=== PATIENT | male | born 1990 | race African-American/Black ===

== ENCOUNTER 2024-01-27 11:29 | Emergency (ER) | payer OTHER, SELFPAY ==
--- NOTE | ~2024-01-27 | US_ITS ---
Duplex Sonography of the right extremity: Indication: Calf pain Findings: Sagittal and transverse B-mode images as well as color-flow imaging were performed on the r ight femoral and popliteal veins. B-mode examination was done without and with compression in the tr ansverse plane. There is good visualization of the common femoral, proximal profunda femoral, superf icial femoral, greater saphenous, and popliteal veins. Normal flow was seen on color-flow imaging. N ormal compressibility was demonstrated. Visualized calf veins are also patent. Impression: No evidence of deep vein thrombosis involving the right lower extremity. Reviewed, dictated and finalized at location M. ING PAINTER Impression: No evidence of deep vein thrombosis involving the right lower extremity.
[2024-01-27 11:45] VITALS: BP 146/85; PULSE 71; RESP 20; TEMP 36.1; O2SAT 97
--- NOTE | 2024-01-27 12:45 | ED_ITS ---
HPI - Extremity Problem General Chief complaint: Extremity Problem,Nontraumatic Stated complaint: R leg pain Time Seen by Provider: 01/27/24 12:10 Source: patient Mode of arrival: ambulatory Limitations: no limitations History of Present Illness HPI Narrative: Patient with right calf pain for 2 weeks and some swelling noticed. Worse he walks. No history of DVT. No injury. Related Data Allergies Allergy/AdvReac Type Severity Reaction Status Date / Time No Known Allergies Allergy Verified 01/27/24 11:43 Review of Systems Review of Systems: All systems reviewed & are unremarkable except as noted in HPI and below Exam Narrative: Constitutional: Generally well appearing, no acute distress Head: Atraumatic, no deformities. Eyes: Pupils equal, round, and reactive to light. Neck: Supple, no tracheal deviation, no JVD. ENMT: Mucous membranes moist Cardiovascular: S1, S2 auscultated. No murmurs, rubs, or gallops. No S3/S4. Normal Distal pulses. No peripheral edema Respiratory: Lung sounds equal. No wheezes, rales, or rhonchi. Gastrointestinal: Abdomen was soft and non-tender. Non-distended. No rebound or guarding. Genitourinary: Deferred Musculoskeletal: Normal muscle tone and bulk. Mild tenderness to palpation in the right calf. No obvious swelling Skin: No rashes. Neurological: Strength 5/5 in extremities. Cranial nerves I-XII grossly intact. Distal sensation intact. Mental Status: Awake, alert and oriented x3. Follows commands Course Vital Signs Vital signs: Vital Signs Temperature 36.1 C L 01/27/24 11:45 Pulse Rate 71 01/27/24 11:45 Respiratory Rate 20 01/27/24 11:45 Blood Pressure 146/85 H 01/27/24 11:45 Pulse Oximetry 97 01/27/24 11:45 Oxygen Delivery Room Air 01/27/24 11:45 Temperature 36.1 C L 01/27/24 11:45 Pulse Rate 71 01/27/24 11:45 Respiratory Rate 20 01/27/24 11:45 Blood Pressure 146/85 H 01/27/24 11:45 Pulse Oximetry 97 01/27/24 11:45 Oxygen Delivery Room Air 01/27/24 11:45 MDM - Extremity (Nontraumatic) MDM Narrative Medical decision making narrative: 33-year-old here for right leg pain ongoing for 2 weeks. Located in his right calf. Worse with walking. Exam shows no significant swelling but he is mildly tender in the area. Suspect either muscular inflammation versus DVT. Obtaining ultrasound to rule out DVT. US shows no DVT. Suspect muscular etiology such as strain. Pt feeling improved and would like to go home at this point. Return precautions were given to the patient include any new or worsening symptoms or development of and not limited to any chest pain, shortness of breath, lightheadedness, abdominal pain, fevers, chills. Patient understands and agrees. They are to follow-up with her PCP. All questions were answered. I reviewed the patient's vital signs, history, allergies, and labs and imaging workup. Discharge Plan Discharge Clinical Impression: Strain of calf muscle Qualifiers: Encounter type: initial encounter Laterality: right Qualified Code(s): S86.811A - Strain of other muscle(s) and tendon(s) at lower leg level, right leg, initial encounter Patient Disposition: Home, Self-Care Condition: Stable Instructions: Antibiotic Form, Leg Sprain (ED) Prescriptions: New naproxen 500 mg tablet 500 mg PO BID PRN (Reason: pain) Qty: 20 0RF Follow-up/Referrals: PHYSICIAN,ORACLE BUSINESS ANALYST [Non-Staff] - Time of Disposition: 13:36
[2024-01-27 13:45] VITALS: BP 138/80; PULSE 78; RESP 16; TEMP 36.6; O2SAT 100
== END 2024-01-27 13:47 | disposition home or self-care (01) ==
PROVIDERS: Emergency Provider Emergency Medicine
DX: S86.811A Strain of other muscle(s) and tendon(s) at lower leg level, right leg, initial encounter (principal)
CPT/HCPCS: 93971; 99284

== ENCOUNTER 2024-02-17 15:32 | Emergency (ER) | payer OTHER, SELFPAY ==
[2024-02-17 15:42] VITALS: BP 123/70; PULSE 77; RESP 16; TEMP 36.4; O2SAT 99
--- NOTE | 2024-02-17 15:44 | ED_ITS ---
HPI - Wound/Laceration General Chief Complaint: Wound/Laceration Stated Complaint: Open Wound Time Seen by Provider: 02/17/24 15:45 Source: patient Mode of arrival: ambulatory Limitations: no limitations Related Data Allergies Allergy/AdvReac Type Severity Reaction Status Date / Time No Known Allergies Allergy Verified 01/27/24 11:43 Course Vital Signs Vital signs: Vital Signs Temperature 36.4 C L 02/17/24 15:42 Pulse Rate 77 02/17/24 15:42 Respiratory Rate 16 02/17/24 15:42 Blood Pressure 123/70 02/17/24 15:42 Pulse Oximetry 99 02/17/24 15:42 Temperature 36.4 C L 02/17/24 15:42 Pulse Rate 77 02/17/24 15:42 Respiratory Rate 16 02/17/24 15:42 Blood Pressure 123/70 02/17/24 15:42 Pulse Oximetry 99 02/17/24 15:42 Discharge Plan Discharge Prescriptions: No Action naproxen 500 mg tablet 500 mg PO BID PRN (Reason: pain) Qty: 20 0RF Follow-up/Referrals: PHYSICIAN,MEDIA PRODUCTION SUPPORT MANAGER [Primary Care Provider] -
--- NOTE | 2024-02-17 15:46 | ED.SKABFB ---
HPI - Skin/Abscess/Foreign Bdy General Chief complaint: Wound/Laceration Stated complaint: Open Wound Time Seen by Provider: 02/17/24 15:45 Source: patient Mode of arrival: ambulatory Limitations: no limitations History of Present Illness HPI narrative: 33 yo M started using new deodorant 1 wk ago and has been having pain irritation, swelling to armpits for 4 days. Reports drainage. Pain when moving arms. Unsure if he has infection or allergic reaction to deodorant. afebrile. All systems reviewed and negative except as noted above. Related Data Allergies Allergy/AdvReac Type Severity Reaction Status Date / Time No Known Allergies Allergy Verified 02/17/24 15:50 Review of Systems Review of Systems: CONSTITUTIONAL: Denies fever, chills, or sweats. EYES: Denies visual changes, redness, or discharge. ENT: Denies rhinorrhea, congestion, sore throat, or otalgia. CARDIOVASCULAR: Denies chest pain, palpitations, or edema. RESPIRATORY: Denies cough or dyspnea. GASTROINTESTINAL: Denies abdominal pain, nausea, vomiting, or diarrhea. GENITOURINARY: Denies dysuria or hematuria. SKIN: Denies rash or itching. Reports pain, swelling, redness, open draining to bilteral armpits MUSCULOSKELETAL: Denies back pain, joint pain, or myalgia. NEUROLOGIC: Denies headache, numbness, or weakness. PSYCHIATRIC: Denies anxiety or depression. All other systems reviewed are negative, except as documented in HPI. PMFSH Comments At time of signature, agree with nursing past medical, surgical, social and family history. There is no relevant family history pertinent to the presenting complaint. Exam Narrative: GENERAL: This is a well-nourished, well-developed patient, in no apparent distress. HEAD: normocephalic, atraumatic. EYES: PERRL. Sclera clear/white. Vision is grossly intact. EARS: External ears normal NOSE: External nose normal NECK: Neck supple, non-tender without lymphadenopathy, masses or thyromegaly. CARDIOVASCULAR: Regular rate and rhythm without murmurs, gallops, or rubs. RESPIRATORY: Clear to auscultation. Breath sounds equal bilaterally. No wheezes, rales, or rhonchi. SKIN: erythema, hypimentation to bilateral axilla with swelling, tenderness. some open skin with purulent drainage. NEURO: awake, alert, and oriented to person, place and time. There were no obvious focal neurologic abnormalities. EXTREMITIES: No joint tenderness, effusion, or edema noted. Course Course Level of Care: Express Care Visit Vital Signs Vital signs: Vital Signs Temperature 36.4 C L 02/17/24 15:42 Pulse Rate 77 02/17/24 15:42 Respiratory Rate 16 02/17/24 15:42 Blood Pressure 123/70 02/17/24 15:42 Pulse Oximetry 99 02/17/24 15:42 Temperature 36.4 C L 02/17/24 15:42 Pulse Rate 77 02/17/24 15:42 Respiratory Rate 16 02/17/24 15:42 Blood Pressure 123/70 02/17/24 15:42 Pulse Oximetry 99 02/17/24 15:42 reviewed MDM - Skin/Abscess/Foreign Bdy MDM Narrative Medical decision making narrative: possible allergic reaction to new deodorant. recommend pt stop. will treat with abx and antifungal due to pt's symptoms. avoid deodorant until symptoms resolved. Patient is aware of diagnosis, understands and agrees to treatment plan. Anticipatory guidance given. Patient agrees to follow-up as directed and is aware of reasons to seek care at the emergency department. Portions of this record may have been created with voice recognition software Discharge Plan Discharge Clinical Impression: Cellulitis of axillary region, Fungal infection Patient Disposition: Home, Self-Care Condition: Stable Instructions: Antibiotic Form Additional Instructions: Take medications as prescribed. Stop using new deodorant and switch back to old deodorant after symptoms have resolved. Wash with mild soap and water. Pat dry with towel. Take ibuprofen or Tylenol every 6-8 hours as needed for pain. See your doctor if symptoms not improving. Prescriptions: New cephalexin 500 mg capsule 500 mg PO Q6H 7 Days Qty: 28 0RF itraconazole 100 mg capsule 200 mg PO DAILY 7 Days Qty: 14 0RF Rx Instructions: must administer with a meal/food No Action naproxen 500 mg tablet 500 mg PO BID PRN (Reason: pain) Qty: 20 0RF Follow-up/Referrals: PHYSICIAN,NEWS CAMERA OPERATOR [Primary Care Provider] - Time of Disposition: 15:53
== END 2024-02-17 16:14 | disposition home or self-care (01) ==
PROVIDERS: Emergency Provider Nurse Practitioner Family
DX: L03.112 Cellulitis of left axilla (principal); L03.111 Cellulitis of right axilla; B36.9 Superficial mycosis, unspecified; I10 Essential (primary) hypertension
CPT/HCPCS: 99213; G0463

== ENCOUNTER 2024-05-14 22:58 | Emergency (ER) | payer OTHER, SELFPAY ==
--- NOTE | ~2024-05-14 | XR_ITS ---
EXAMINATION: XR chest 2V Exam Date/Time: 05/14/2024 23:50 GMAT INSTRUCTOR HISTORY: cp MID TO LEFT SIDE Comparison: None. RESULT: Lines, tubes, and devices: None. Lungs and pleura: Clear. Cardiomediastinal silhouette: Normal. Other: No acute osseous or upper abdominal finding. IMPRESSION: No acute cardiopulmonary process. Reviewed, dictated and finalized at location K. INSTRUCTOR
--- OUTSIDE RECORDS SUMMARY | 2024-05-14 23:00 | XMS_ITS | Data Portability ---
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 Plan of Treatment Reminders Order Date Submit Date Provider Last Modified By Organization Details Last Modified Time Details Appointments None recorded. Lab TSH, ultra-sensi tive, serum 2023 024 [facility], [address] [place] [address], [address], [place], [address], 4 11:15:51 HbA1c (hemoglobin A1c), blood 2023 024 [facility], [address] [place] [address], [address], [place], [address], 4 11:15:51 CMP, serum or plasma 2023 024 [facility], [address] [place] [address], [address], [place], [address], 4 11:15:50 lipid panel, serum 2023 024 [facility], [address] [place] [address], [address], [place], [address], 4 11:15:49 albumin/cre atinine, mass ratio, urine 2023 024 [facility], [address], [address], [place], [address], 4 11:15:49 CBC w/ auto diff 2023 024 [facility], [address], [address], [place], [address], 4 11:15:[address] referral - snoring, witnessed sleep apnea, please eval and treat 2023 024 [facility], [address] , [place] [address], [place], [address], 4 12:30:20 Procedures None recorded. Surgeries None recorded. Imaging XR, finger(s), 2 or more view - pain in right ring finger 2023 024 [facility] (Registration ), [address], [place], [address], 4 11:05:06 XR, hand, 3 or more view - pain in right ring finger 2023 024 [facility] (Registration ), [place], [address], 4 11:04:58 Medication Orders amlodipine 10 mg tablet 2023 024 [id number], [address] [place], [address], 4 14:47:27 amlodipine 10 mg tablet 2023 024 [id number], [address] [place], [address], 4 09:59:26 amlodipine 5 mg tablet 2023 024 [id number], [address] [place], [address], 09:30:58 Tubersol 5 tub. unit/0.1 mL intradermal injection solution 2014 015 [facility] Not available 09:03:24 Patient TargetsNo targets recorded. Patient Instructions Encounter Date Encounter Id Patient Instructions Last Modified By Organization Details Last Modified Time 06/07/2023 [id number] A healthy lifestyle: care instructions [email or web address] Not available 06/07/2023 15:59:16 06/28/2023 [id number] A healthy lifestyle: care instructions [email or web address] Not available 06/28/2023 09:50:45 I saw the patien t with the [employer] student A Cindy RN. I agree with the students assessment and plan as documented. 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 Referral for S noring snoring, witnessed sleep apnea, please eval and treat Referring Physician: Linda Nguyen, Artist'S Model, Encounter Date: 06/07/2023 Results Created Date Observation Date Name Description Value Unit Range Abnormal Flag Note LastModifiedBy Organization Detail LastModifiedTime 05/17/19 15 05/17/2014 visua l acuit y* R Eye Uncorrected 20/50 Not Available In-O ffice Order Internal Use Only DO Not Attach Compendium DO Not Attach Compendium, Do Not Delete/merge, [id number] 05/17/2014 13:05:29 05/17/19 15 05/17/2014 visua l acuit y* L Eye Uncorrected 20/40 Not Available In-O ffice Order Internal Use Only DO Not Attach Compendium DO Not Attach Compendium, Do Not Delete/merge, [id number] 05/17/2014 13:05:29 06/07/19 24 06/08/2023 ALBUM IN/CR EATIN INE RATIO ,URIN E creatinine, urine 157.5 mg/dL notest ab. Not Available [facility] ([facility]) [address] [place], [address], 06/08/2023 11:15:49 06/07/19 24 06/08/2023 ALBUM IN/CR EATIN INE RATIO ,URIN E albumin, urine 9.2 ug/mL notest ab. Not Available [facility] ([facility]) [address] [facility], [place], [address], 06/08/2023 11:15:49 06/07/19 24 06/08/2023 ALBUM IN/CR EATIN INE RATIO ,URIN E alb/creat ratio 6 mg/g_ creat 0-29 Diane l: 0 - 29 Moder ately incre ased: 30 - 300 Sever margoth incre ased: >300 Not Available [facility] ([facility]) [address] [place], [address], 06/08/2023 11:15:49 06/07/19 24 06/08/2023 LIPID PANEL cholesterol, total 178 mg/dL 100-19 9 Not Available [facility] ([facility]) [address] [place], [address], 06/08/2023 11:15:49 06/07/19 24 06/08/2023 LIPID PANEL triglyceride s 95 mg/dL 0-149 Not Available [facility] ([facility]) [address] [place], [address], 06/08/2023 11:15:49 06/07/19 24 06/08/2023 LIPID PANEL HDL cholesterol 37 mg/dL >39 below low normal Not Available [facility] ([facility]) [address] [place], [address], 06/08/2023 11:15:49 06/07/19 24 06/08/2023 LIPID PANEL VLDL cholesterol latoya 18 mg/dL 5-40 Not Available [facility] ([facility]) [address] [place], [address], 06/08/2023 11:15:49 06/07/19 24 06/08/2023 LIPID PANEL LDL chol calc ([facility]) 123 mg/dL 0-99 above high normal Not Available [facility] ([facility]) [address] [place], [address], 06/08/2023 11:15:49 06/07/19 24 06/08/2023 COMP. METAB OLIC PANEL (14) glucose 80 mg/dL 70-99 Not Available [facility] ([facility]) [address] [place], [address], 06/08/2023 11:15:50 06/07/19 24 06/08/2023 COMP. METAB OLIC PANEL (14) BUN 15 mg/dL 6-20 Not Available [facility] ([facility]) [address] [place], [address], 06/08/2023 11:15:50 06/07/19 24 06/08/2023 COMP. METAB OLIC PANEL (14) creatinine 1.28 mg/dL 0.76-1 .27 above high normal Not Available [facility] ([facility]) [address] [place], [address], 06/08/2023 11:15:50 06/07/19 24 06/08/2023 COMP. METAB OLIC PANEL (14) eGFR 77 mL/mi n/1.7 3 >59 Not Available [facility] ([facility]) [address] [place], [address], 06/08/2023 11:15:50 06/07/19 24 06/08/2023 COMP. METAB OLIC PANEL (14) BUN/creatini ne ratio 12 - Not Available [facility]) [address] [place], [address], 06/08/2023 11:15:50 06/07/19 24 06/08/2023 COMP. METAB OLIC PANEL (14) sodium 141 mmol/ L 134-14 4 Not Available [facility] ([facility]) [address] [place], [address], 06/08/2023 11:15:50 06/07/19 24 06/08/2023 COMP. METAB OLIC PANEL (14) potassium 4.7 mmol/ L 3.5-5. 2 Not Available [facility] ([facility]) [address] [place], [address], 06/08/2023 11:15:50 06/07/19 24 06/08/2023 COMP. METAB OLIC PANEL (14) chloride 101 mmol/ L 96-106 Not Available [facility] ([facility]) [address] [place], [address], 06/08/2023 11:15:50 06/07/19 24 06/08/2023 COMP. METAB OLIC PANEL (14) carbon dioxide, total 26 mmol/ L 20-29 Not Available [facility] ([facility]) [address] [place], [address], 06/08/2023 11:15:50 06/07/19 24 06/08/2023 COMP. METAB OLIC PANEL (14) calcium 9.7 mg/dL 8.7-10 .2 Not Available [facility] ([facility]) [address] [facility] [place], [address], 06/08/2023 11:15:50 06/07/19 24 06/08/2023 COMP. METAB OLIC PANEL (14) protein, total 7.3 g/dL 6.0-8. 5 Not Available [facility] ([facility]) [address] [facility] [place], [address], 06/08/2023 11:15:50 06/07/19 24 06/08/2023 COMP. METAB OLIC PANEL (14) albumin 4.5 g/dL 4.1-5. 1 Not Available [facility] ([facility]) [address] [facility], [place], [address], 06/08/2023 11:15:50 06/07/19 24 06/08/2023 COMP. METAB OLIC PANEL (14) globulin, total 2.8 g/dL 1.5-4. 5 Not Available [facility] ([facility]) [address] [facility], [place], [address], 06/08/2023 11:15:50 06/07/19 24 06/08/2023 COMP. METAB OLIC PANEL (14) A/G ratio 1.6 1.2-2. 2 Not Available [facility] ([facility]) [address] [facility], [place], [address], 06/08/2023 11:15:50 06/07/19 24 06/08/2023 COMP. METAB OLIC PANEL (14) bilirubin, total 0.5 mg/dL 0.0-1. 2 Not Available [facility] ([facility]) [address] [facility], [place], [address], 06/08/2023 11:15:50 06/07/19 24 06/08/2023 COMP. METAB OLIC PANEL (14) alkaline phosphatase 63 IU/L 44-121 Not Available [facility]) [address] [facility], [place], [address], 06/08/2023 11:15:50 06/07/19 24 06/08/2023 COMP. METAB OLIC PANEL (14) AST (SGOT) 22 IU/L 0-40 Not Available [facility] ([facility]) [address] [facility], [place], [address], 06/08/2023 11:15:50 06/07/19 24 06/08/2023 COMP. METAB OLIC PANEL (14) ALT (SGPT) 29 IU/L 0-44 Not Available [facility] ([facility]) [address] [facility], [place], [address], 06/08/2023 11:15:50 06/07/19 24 06/08/2023 TSH RFX ON ABNOR MAL TO FREE T4 TSH 1.510 uIU/m L 0.450- 4.500 Not Available [facility] ([facility]) [address] [place], [address], 06/08/2023 11:15:51 06/07/19 24 06/08/2023 HEMOG LOBIN A1C hemoglobin A1C 5.3 % 4.8-5. 6 Predi abete s: 5.7 - 6.4 Diabe miki: >6.4 Glyce christian contr ol for adult s with diabe miki: <7.0 Not Available [facility] ([facility]) [address] [facility], [place], [address], 06/08/2023 11:15:51 06/07/19 24 06/08/2023 CBC WITH DIFFE RENTI AL/PL ATELE T WBC 6.4 x10e3 /uL 3.4-10 .8 Not Available [facility] ([facility]) [address] [place], [address], 06/08/2023 11:15:52 06/07/19 24 06/08/2023 CBC WITH DIFFE RENTI AL/PL ATELE T RBC 6.07 x10e6 /uL 4.14-5 .80 above high normal Not Available [facility] ([facility]) [address] [place], [address], 06/08/2023 11:15:52 06/07/19 24 06/08/2023 CBC WITH DIFFE RENTI AL/PL ATELE T hemoglobin 16.1 g/dL 13.0-1 7.7 Not Available [facility] ([facility]) [address] [place], [address], 06/08/2023 11:15:52 06/07/19 24 06/08/2023 CBC WITH DIFFE RENTI AL/PL ATELE T hematocrit 49.6 % 37.5-5 1.0 Not Available [facility] ([facility]) [address] [facility], [place], [address], 06/08/2023 11:15:52 06/07/19 24 06/08/2023 CBC WITH DIFFE RENTI AL/PL ATELE T MCV 82 fL 79-97 Not Available [facility] ([facility]) [address] [facility], [place], [address], 06/08/2023 11:15:52 06/07/19 24 06/08/2023 CBC WITH DIFFE RENTI AL/PL ATELE T MCH 26.5 pg 26.6-3 3.0 below low normal Not Available [facility] ([facility]) [address] [facility], [place], [address], 06/08/2023 11:15:52 06/07/19 24 06/08/2023 CBC WITH DIFFE RENTI AL/PL ATELE T MCHC 32.5 g/dL 31.5-3 5.7 Not Available [facility] ([facility]) [address] [place], [address], 06/08/2023 11:15:52 06/07/19 24 06/08/2023 CBC WITH DIFFE RENTI AL/PL ATELE T RDW 13.1 % 11.6-1 5.4 Not Available [facility] ([facility]) [address] [facility], [place], [address], 06/08/2023 11:15:52 06/07/19 24 06/08/2023 CBC WITH DIFFE RENTI AL/PL ATELE T platelets 332 x10e3 /uL 150-45 0 Not Available [facility] ([facility]) [address] [place], [address], 06/08/2023 11:15:52 06/07/19 24 06/08/2023 CBC WITH DIFFE RENTI AL/PL ATELE T neutrophils 46 % notest ab. Not Available [facility] ([facility]) [address] [facility], [place], [address], 06/08/2023 11:15:52 06/07/19 24 06/08/2023 CBC WITH DIFFE RENTI AL/PL ATELE T lymphs 40 % notest ab. Not Available [facility] ([facility]) [address] [facility], [place], [address], 06/08/2023 11:15:52 06/07/19 24 06/08/2023 CBC WITH DIFFE RENTI AL/PL ATELE T monocytes 10 % notest ab. Not Available [facility] ([facility]) [address] [facility], [place], [address], 06/08/2023 11:15:52 06/07/19 24 06/08/2023 CBC WITH DIFFE RENTI AL/PL ATELE T eos 3 % notest ab. Not Available [facility] ([facility]) [address] [facility], [place], [address], 06/08/2023 11:15:52 06/07/19 24 06/08/2023 CBC WITH DIFFE RENTI AL/PL ATELE T basos 1 % notest ab. Not Available [facility] ([facility]) [address] [facility], [place], [address], 06/08/2023 11:15:52 06/07/19 24 06/08/2023 CBC WITH DIFFE RENTI AL/PL ATELE T neutrophils (absolute) 3.0 x10e3 /uL 1.4-7. 0 Not Available [facility] ([facility]) [address] [place], [address], 06/08/2023 11:15:52 06/07/19 24 06/08/2023 CBC WITH DIFFE RENTI AL/PL ATELE T lymphs (absolute) 2.6 x10e3 /uL 0.7-3. 1 Not Available [facility] ([facility]) [address] [facility], [place], [address], 06/08/2023 11:15:52 06/07/19 24 06/08/2023 CBC WITH DIFFE RENTI AL/PL ATELE T monocytes(ab solute) 0.6 x10e3 /uL 0.1-0. 9 Not Available [facility] ([facility]) [address] [facility], [place], [address], 06/08/2023 11:15:52 06/07/19 24 06/08/2023 CBC WITH DIFFE RENTI AL/PL ATELE T eos (absolute) 0.2 x10e3 /uL 0.0-0. 4 Not Available [facility] ([facility]) [address] [facility], [place], [address], 06/08/2023 11:15:52 06/07/19 24 06/08/2023 CBC WITH DIFFE RENTI AL/PL ATELE T baso (absolute) 0.1 x10e3 /uL 0.0-0. 2 Not Available [facility] ([facility]) [address] [facility], [place], [address], 06/08/2023 11:15:52 06/07/19 24 06/08/2023 CBC WITH DIFFE RENTI AL/PL ATELE T immature granulocytes 0 % notest ab. Not Available [facility] ([facility]) [address] [facility], [place], [address], 06/08/2023 11:15:52 06/07/19 24 06/08/2023 CBC WITH DIFFE RENTI AL/PL ATELE T immature grans (abs) 0.0 x10e3 /uL 0.0-0. 1 Not Available [facility] ([facility]) [address] [facility], [place], [address], 06/08/2023 11:15:52 06/28/19 24 06/29/2023 BASIC METAB OLIC PANEL (8) glucose 93 mg/dL 70-99 Not Available [facility] ([facility]) [address] [facility] [place], [address], 06/29/2023 02:08:54 06/28/19 24 06/29/2023 BASIC METAB OLIC PANEL (8) BUN 11 mg/dL 6-20 Not Available [facility] ([facility]) [address] [facility] [place], [address], 06/29/2023 02:08:54 06/28/19 24 06/29/2023 BASIC METAB OLIC PANEL (8) creatinine 1.20 mg/dL 0.76-1 .27 Not Available [facility] ([facility]) [address] [facility] [place], [address], 06/29/2023 02:08:54 06/28/19 24 06/29/2023 BASIC METAB OLIC PANEL (8) eGFR 83 mL/mi n/1.7 3 >59 Not Available [facility] ([facility]) [address] [facility], [place], [address], 06/29/2023 02:08:54 06/28/19 24 06/29/2023 BASIC METAB OLIC PANEL (8) BUN/creatini ne ratio 9 9-20 Not Available [facility]) [address] [place], [address], 06/29/2023 02:08:54 06/28/19 24 06/29/2023 BASIC METAB OLIC PANEL (8) sodium 141 mmol/ L 134-14 4 Not Available [facility] ([facility]) [address] [place], [address], 06/29/2023 02:08:54 06/28/19 24 06/29/2023 BASIC METAB OLIC PANEL (8) potassium 4.5 mmol/ L 3.5-5. 2 Not Available [facility] ([facility]) [address] [place], [address], 06/29/2023 02:08:54 06/28/19 24 06/29/2023 BASIC METAB OLIC PANEL (8) chloride 105 mmol/ L 96-106 Not Available [facility] ([facility]) [address] [facility], [place], [address], 06/29/2023 02:08:54 06/28/19 24 06/29/2023 BASIC METAB OLIC PANEL (8) carbon dioxide, total 22 mmol/ L 20-29 Not Available [facility] ([facility]) [address] [facility], [place], [address], 06/29/2023 02:08:54 06/28/19 24 06/29/2023 BASIC METAB OLIC PANEL (8) calcium 9.6 mg/dL 8.7-10 .2 Not Available [facility] ([facility]) [address] [facility], [place], [address], 06/29/2023 02:08:54 12/29/19 17 12/28/2016 CT, head, w/o contr ast No observ ation record ed. [email or web address] Not Available 2016 11:20:19 07/01/19 24 xr hand RT 3V [facility] [place] [address] EXAM: XR FOURTH FINGER RT 3V, XR HAND RT 3V DATE: 06/28/19 24 No compar rangel INDICA TION: Fourth digit pain for about 2 months . Sympto ms starte d after letty gillespie TECHNI QUE: 3 views of the right hand and 4 views of the right fourth finger . FINDIN GS: No fractu re or malali gnment . Normal bone densit y. IMPRES CHON: Normal exams. Referr ed By: Samantha onkandi ly Signed By: Brandon Rawls MD on 2:29 PM Interp reted By: Brandon Rawls MD, 2:23 PM sp[facility]arrosalie [facility] [address] [facility], [place], [address], 07/11/2023 11:05:35 07/01/19 24 xr fourt h finge r RT 3V [facility] [place] [address] EXAM: XR FOURTH FINGER RT 3V, XR HAND RT 3V DATE: 06/28/19 24 No compar rangel INDICA TION: Fourth digit pain for about 2 months . Sympto ms starte d after letty gillespie TECHNI QUE: 3 views of the right hand and 4 views of the right fourth finger . FINDIN GS: No fractu re or malali gnment . Normal bone densit y. IMPRES CHON: Normal exams. Referr ed By: Samantha langford Signed By: Brandon Rawls MD on 2:29 PM Interp reted By: Brandon Rawls MD, 2:23 PM herman [facility] [address] [facility], [place], [address], 07/11/2023 11:05:35 Result Notes None recorded. Problems Name Problem SNOMED Code Status Onset Date Resolution Date Notes Provider Name and Address Organization Details Recorded Time Hypertens oneyda disorder 12846520 Active 2023 ---Synced with [facility] ([facility]) Not Available [facility] 4 09:39:25 Asthma 135097023 Active 2023 ---Synced with [facility] ([facility]) Not Available [facility] 4 09:39:25 Essential hypertens ion 47086908 Active 2023 ---Synced with [facility] ([facility]) Not Available [facility] 4 09:39:26 Problem Notes None recorded. Procedures Surgical History Date Name Laterality Status Provider Name and Address Organization Details Recorded Time 5 Appendectomy completed DIYA Tidwell Attn: Accounting,[address] [place], [address], [place] [facility] 06/07/2023 15:30:15 Imaging Results Imaging Date Name Status LastModified by Organiz ation Details LastModified Time 12/28/2016 CT, head, w/o contrast completed [email or web address] Information not available 01/06/2017 11:20:19 07/01/2023 xr hand RT 3V completed [address], [address], 07/11/2023 11:05:35 07/01/2023 xr fourth finger RT 3V completed [address], [address], 07/11/2023 11:05:35 Procedure Notes None recorded. Medical Equipment None Reported. Allergies No known drug allergies Medications Name Sig Start Date Stop Date Status Note LastModified by Organization Details LastModified Time amoxicill in 500 mg caps 06/06 completed Not Available Not Available Not Available acetamino phen/code ine #3 300-30 mgtabs 06/06 completed Not Available Not Available Not Available metronida zole 1 % gel 06/06 completed Not Available Not Available Not Available hydrochlo rothiazid e 25 mg tabs 06/06 completed Not Available Not Available Not Available ibuprofen 600 mg tabs 06/06 completed Not Available Not Available Not Available ibuprofen 800 mg tablet TAKE 1 TABLET BY MOUTH EVERY 8 HOURS NEEDED FOR PAIN active Not Available Not Available No t Available Tubersol 5 tub. unit/0.1 mL intraderm al injection solution 09/25 completed 06/16/19 15_Pt. returned to have PPD read. Results: Negative , 0mm. Vani Nova MA Not Available Not Available Not Available amlodipin e 5 mg tablet Take 1 tablet every day by oral route. 06/27 completed Not Available Not Available Not Available tramadol 50 mg tablet TAKE 1 TABLET BY MOUTH EVERY 8 HOURS NEEDED FOR PAIN 03/19 /2024 completed Not Available Not Available Not Available amlodipin e 10 mg tablet TAKE 1 TABLET BY MOUTH EVERY DAY FOR HIGH BLOOD PRESSURE . active Appt needed* Not Available Not Available Not Available benzonata te 100 mg capsule TAKE 1 CAPSULE BY MOUTH THREE TIMES A DAY NEEDED FOR COUGH 06/06 completed Not Available Not Available Not Available cephalexi n 500 mg capsule TAKE 1 CAPSULE BY MOUTH EVERY 6 HOURS FOR 7 DAYS active Not Available Not Available No t Available methylpre dnisolone 4 mg tablets in a dose pack TAKE BY MOUTH DIRECTED ON INSIDE OF PACKAGE 06/06 completed Not Available Not Available Not Available ondansetr on 4 mg disintegr ating tablet TAKE 1 TABLET BY MOUTH EVERY 8 HOURS NEEDED 06/06 completed Not Available Not Available Not Available itraconaz ole 100 mg capsule TAKE 2 CAPSULES BY MOUTH ONCE DAILY FOR 7 DAYS MUST ADMINIST ER WITH A MEAL/MACKENZIE D active Not Available Not Available No t Available naproxen 500 mg tablet TAKE 1 TABLET BY MOUTH TWICE A DAY NEEDED FOR PAIN active Not Available Not Available No t Available amoxicill in 875 mg-potass ium clavulana te 125 mg tablet TAKE 1 TABLET BY MOUTH TWICE A DAY UNTIL FINISHED , NOT CONTRACT ED 09/25 completed Not Available Not Available Not Available sildenafi l (pulmonar y hypertens ion) 20 mg tablet TAKE ONE TABLET BY MOUTH DAILY NEEDED AN HOUR BEFORE SEX. DO NOT TAKE MORE THAN ONE TIME IN 48 HOURS. THIS IS NOT A DAILY MEDICINE . active Not Available Not Available No t Available Vitals Date Recorded Body temperature Body height Body mass index (BMI) Body weight Heart rate Oxygen saturation Oxygen saturation in Arterial blood by Pulse oximetry Systolic blood pressure Diastolic blood pressure Provider Name and Address Organization Details Last Updated DateTime 4 97.7 [degF] 172.09 cm 36.9 kg/m2 461105. 76 g 79 /min 98 % 98 % 139 mm[Hg] 101 mm[Hg] Maxine Donovan MA [place] [facility] 4 15:23:08 Date Recorded Body height Body mass index (BMI) Body weight Body temperature Heart rate Systolic blood pressure Diastolic blood pressure Provider Name and Address Organization Details Last Updated DateTime 4 172.09 cm 42 kg/m2 255832. 31 g 98.1 [degF] 78 /min 137 mm[Hg] 90 mm[Hg] Danette Purcell [place] [facility] 09:18:08 Date Recorded Heart rate Systolic blood pressure Diastolic blood pressure Provider Name and Address Organization Details Last Updated DateTime 06/28/2023 64 /min 118 mm[Hg] 91 mm[Hg] Not Available [facility] 09:53:11 Date Recorded Systolic blood pressure Diastolic blood pressure Provider Name and Address Organization Details Last Updated DateTime 06/28/2023 128 mm[Hg] 92 mm[Hg] DIYA Tidwell Attn: Accounting,[address] [facility], [place], [address], [place] - [facility] 06/28/2023 09:29:05 Date Recorded Heart rate Systolic blood pressure Diastolic blood pressure Provider Name and Address Organization Details Last Updated DateTime 06/29/2023 77 /min 113 mm[Hg] 79 mm[Hg] Not Available [facility] 12:10:45 Date Recorded Heart rate Systolic blood pressure Diastolic blood pressure Provider Name and Address Organization Details Last Updated DateTime 06/30/2023 75 /min 133 mm[Hg] 75 mm[Hg] Not Available [facility] 09:24:36 Date Recorded Heart rate Systolic blood pressure Diastolic blood pressure Provider Name and Address Organization Details Last Updated DateTime 07/16/2023 71 /min 114 mm[Hg] 77 mm[Hg] Not Available [facility] 10:03:14 Date Recorded Heart rate Systolic blood pressure Diastolic blood pressure Provider Name and Address Organization Details Last Updated DateTime 08/03/2023 75 /min 128 mm[Hg] 92 mm[Hg] Not Available [facility] 12:58:48 Date Recorded Heart rate Heart rate Systolic blood pressure Diastolic blood pressure Systolic blood pressure Diastolic blood pressure Provider Name and Address Organization Details Last Updated DateTime 78 /min 75 /min 125 mm[Hg] 85 mm[Hg] 132 mm[Hg] 90 mm[Hg] Not Available Esvyda! 09:11:33 Date Recorded Heart rate Heart rate Systolic blood pressure Diastolic blood pressure Systolic blood pressure Diastolic blood pressure Provider Name and Address Organization Details Last Updated DateTime 4 79 /min 116 /min 129 mm[Hg] 79 mm[Hg] 134 mm[Hg] 97 mm[Hg] Not Available [facility]! 4 01:05:51 Date Recorded Heart rate Systolic blood pressure Diastolic blood pressure Provider Name and Address Organization Details Last Updated DateTime 09/23/2023 79 /min 122 mm[Hg] 81 mm[Hg] Not Available Es[facility]da! 01:05:51 Date Recorded Body height Body mass index (BMI) Body weight Body temperature Heart rate Oxygen saturation Oxygen saturation in Arterial blood by Pulse oximetry Provider Name and Address Organization Details Last Updated DateTime 4 172.09 cm 40.1 kg/m2 370752. 2 g 97.7 [degF] 72 /min 98 % 98 % Phani bethea, [place] 4 14:36:34 Date Recorded Systolic blood pressure Diastolic blood pressure Provider Name and Address Organization Details Last Updated DateTime 10/05/2023 122 mm[Hg] 82 mm[Hg] DIYA Tidwell Attn: Accounting,[address] [place], [address], [place] [facility] 10/05/2023 14:45:42 Date Recorded Heart rate Heart rate Heart rate Systolic blood pressure Diastolic blood pressure Systolic blood pressure Diastolic blood pressure Systolic blood pressure Diastolic blood pressure Provider Name and Address Organization Details Last Updated DateTime 4 70 /min 54 /min 59 /min 123 mm[Hg] 82 mm[Hg] 99 mm[Hg] 56 mm[Hg] 101 mm[Hg] 73 mm[Hg] Not Available [facility]! 4 18:40:10 Date Recorded Heart rate Heart rate Systolic blood pressure Diastolic blood pressure Systolic blood pressure Diastolic blood pressure Provider Name and Address Organization Details Last Updated DateTime 4 68 /min 61 /min 121 mm[Hg] 74 mm[Hg] 120 mm[Hg] 71 mm[Hg] Not Available [facility]! 4 18:40:09 Date Recorded Heart rate Systolic blood pressure Diastolic blood pressure Provider Name and Address Organization Details Last Updated DateTime 11/29/2023 80 /min 129 mm[Hg] 84 mm[Hg] Not Available [facility]! 18:40:09 Date Recorded Heart rate Systolic blood pressure Diastolic blood pressure Provider Name and Address Organization Details Last Updated DateTime 12/03/2023 81 /min 133 mm[Hg] 83 mm[Hg] Not Available [facility]! 10:36:48 Date Recorded Heart rate Systolic blood pressure Diastolic blood pressure Provider Name and Address Organization Details Last Updated DateTime 01/26/2024 77 /min 131 mm[Hg] 82 mm[Hg] Not Available [facility]! 10:36:49 Date Recorded Heart rate Systolic blood pressure Diastolic blood pressure Provider Name and Address Organization Details Last Updated DateTime 12/27/2023 77 /min 119 mm[Hg] 68 mm[Hg] Not Available [facility]! 10:36:49 Date Recorded Heart rate Systolic blood pressure Diastolic blood pressure Provider Name and Address Organization Details Last Updated DateTime 03/05/2024 60 /min 123 mm[Hg] 84 mm[Hg] Not Available [facility]! 10:39:36 Date Recorded Heart rate Systolic blood pressure Diastolic blood pressure Provider Name and Address Organization Details Last Updated DateTime 03/07/2024 75 /min 130 mm[Hg] 81 mm[Hg] Not Available [facility]! 10:39:36 Date Recorded Heart rate Systolic blood pressure Diastolic blood pressure Provider Name and Address Organization Details Last Updated DateTime 02/17/2024 69 /min 113 mm[Hg] 77 mm[Hg] Not Available [facility]! 10:39:37 Date Recorded Heart rate Systolic blood pressure Diastolic blood pressure Provider Name and Address Organization Details Last Updated DateTime 04/11/2024 82 /min 116 mm[Hg] 76 mm[Hg] Not Available [facility]! 00:20:12 Date Recorded Heart rate Systolic blood pressure Diastolic blood pressure Provider Name and Address Organization Details Last Updated DateTime 04/16/2024 71 /min 132 mm[Hg] 79 mm[Hg] Not Available [facility]! 20:07:03 Date Recorded Heart rate Systolic blood pressure Diastolic blood pressure Provider Name and Address Organization Details Last Updated DateTime 04/28/2024 66 /min 128 mm[Hg] 76 mm[Hg] Not Available [facility]! 04:04:49 Date Recorded Heart rate Systolic blood pressure Diastolic blood pressure Provider Name and Address Organization Details Last Updated DateTime 05/01/2024 74 /min 114 mm[Hg] 77 mm[Hg] Not Available [facility]! 18:34:31 Date Recorded Heart rate Heart rate Heart rate Systolic blood pressure Diastolic blood pressure Systolic blood pressure Diastolic blood pressure Systolic blood pressure Diastolic blood pressure Provider Name and Address Organization Details Last Updated DateTime 81 /min 76 /min 76 /min 121 mm[Hg] 76 mm[Hg] 117 mm[Hg] 50 mm[Hg] 125 mm[Hg] 82 mm[Hg] Not Available Esvyda! 22:34:11 Social History Question Answer Notes LastModified by [employer] ion Details LastModified Time Tobacco Smoking Status Never Smoker Nicky Rohini [facility] 05/17/2014 13:05:03 What Was The Date Of Your Most Recent Tobacco Screening? 06/07/2023 Information not available 06/07/2023 Do You Or Have You Ever Used Any Other Forms Of Tobacco Or Nicotine? No Information not available 06/07/2023 Sex: Unknown Functional Status None recorded. Mental Status None recorded. Family History Relationship Description Onset Age of this Age Resolved Age Notes LastModified by Organization Details LastModified Time Mother Chronic obstructive pulmonary disease [email or web address] Not available 06/06 15:28:38 Mother Diabetes mellitus [email or web address] Not available 06/06 15:28:48 Mother Hypertensive disorder [email or web address] Not available 06/06 16:01:00 Brother Asthma [email or web address] Not availabl e 06/07/2023 15:29:06 Medical History Condition Response Coronary Artery Disease N Other N High Blood Pressure Y Atrial Fibrillation Y Thyroid Problems N Kidney or Bladder Problems N GI Problems N Depression N COPD N Blood Clots N Skin Problems N Anemia Y Heart Attack (MD) N Diabetes N Anxiety Disorder N Muscle, Joint, or Bone Problems Y Seizures/Epilepsy N Acid Reflux (GERD) Y Cancer N Stroke N Asthma Y Allergies N High Cholesterol N Hepatitis N Liver Disease N Headaches Y Osteoporosis N Heart Failure N Immunizations Vaccine Type Date Status Note Provider Nam e and Address Organization Details Recorded Time Influenza, split virus, trivalent, preservative 5 completed Not Available [facility] 04/07/2019 02:32:02 varicella 5 completed Not Available [facility] 04/07/2019 02:30:14 Past Encounters Encounter ID Performer Location Encounter Start Date Encounter Closed Date Diagnosis/Indication Diagnosis SNOMED-CT Code Diagnosis ICD10 Code Diagnosis Note [id number] [facility] [address] [place] [address] 05/17/2014 12:48:27 05/17/2014 13:51:57 Adult health examination [id number] Angeline Humphrey [facility] [address] [place] [address] 06/04/2014 14:12:26 06/06/2014 03:51:25 [id number] [facility] [address] [place] [address] 06/13/2014 17:16:53 06/13/2014 17:48:03 Tuberculosis screening [id number] Nicky Nova [facility] [address] [place] [address] 06/15/2014 17:50:20 06/15/2014 18:23:43 Active or passive immunization [id number] DIYA Tidwell [facility] ([facility]) [address] [place] [address] 06/07/2023 15:02:31 06/10/2023 12:02:33 Essential hypertension 78430449 I10 BP Goal: {{Less than 140/90* Le ss than 150/90}}BP Controlled : {{yes no*} }start amlodipine , reports BP control with this in the pastHealth y Weight: {{4'10= 91-118 lbs 4'11= 94-123 lbs 5'= 97-127 lbs 5'1= 100-131 lbs 5'2= 104-135 5' 3= 107-140 lbs 5'4= 110-144 lbs 5'5= 115-149 lbs 5'6= 118-154 lbs 5'7= 121-158 lbs* 5'8= 125-163 lbs 5'9= 128-168 lbs 5'10= 132-173 lbs 5'11= 136-178 lbs 6'= 140-183 lbs 6'1= 144-188 lbs 6'2= 148-193 lbs 6'3= 152-199 lbs 6'4= 156-204 lbs}}Discu ssed: Low sodium balanced diet, moderate exercise at least 3-4 times per week for an average of 40 minutes, limiting alcohol to 1 drink per day (F) or 2 drinks per day (M), and smoking cessation if currently smoking.Ne xt Visit: {{1 2* 3 4 5 6 7 8 9 10 11 12} }{{week(s) * month(s) }} Snoring 57766918 R06.83 -needs sleep study Anemia 181056264 D64.9 -check with labs Obesity 112777840 E66.9 [id number] DIYA Tidwell [facility] ([facility]) [address] [place] [address] 06/28/2023 09:09:35 06/29/2023 10:16:27 Essential hypertension 79089816 I10 BP Goal: {{Less than 140/90* Le ss than 150/90}}BP Controlled : {{yes no*} } increase amlodipine to 10 mg daily, enroll in remote HTN monitoring programHea lthy Weight: {{4'10= 91-118 lbs 4'11= 94-123 lbs 5'= 97-127 lbs 5'1= 100-131 lbs 5'2= 104-135 5' 3= 107-140 lbs 5'4= 110-144 lbs 5'5= 115-149 lbs 5'6= 118-154 lbs 5'7= 121-158 lbs* 5'8= 125-163 lbs 5'9= 128-168 lbs 5'10= 132-173 lbs 5'11= 136-178 lbs 6'= 140-183 lbs 6'1= 144-188 lbs 6'2= 148-193 lbs 6'3= 152-199 lbs 6'4= 156-204 lbs}}Discu ssed: Low sodium balanced diet, moderate exercise at least 3-4 times per week for an average of 40 minutes, limiting alcohol to 1 drink per day (F) or 2 drinks per day (M), and smoking cessation if currently smoking.Ne xt Visit: {{1* 2 3 4 5 6 7 8 9 10 11 12} }{{week(s) month(s)* }} Pain in fi nger of right hand [id number] 61951 M79.644 -send for xray to r/o fracture Morbid obesity 054167413 E66.01 [id number] DIYA Tidwell ([facility] 104) [address] [place] [address] 10/05/2023 14:20:56 10/06/2023 13:17:41 Essential hypertension 43393318 I10 BP Goal: {{Less than 140/90* Le ss than 150/90}}BP Controlled : {{yes* no} } programHea lthy Weight: {{4'10= 91-118 lbs 4'11= 94-123 lbs 5'= 97-127 lbs 5'1= 100-131 lbs 5'2= 104-135 5' 3= 107-140 lbs 5'4= 110-144 lbs 5'5= 115-149 lbs 5'6= 118-154 lbs 5'7= 121-158 lbs* 5'8= 125-163 lbs 5'9= 128-168 lbs 5'10= 132-173 lbs 5'11= 136-178 lbs 6'= 140-183 lbs 6'1= 144-188 lbs 6'2= 148-193 lbs 6'3= 152-199 lbs 6'4= 156-204 lbs}}Discu ssed: Low sodium balanced diet, moderate exercise at least 3-4 times per week for an average of 40 minutes, limiting alcohol to 1 drink per day (F) or 2 drinks per day (M), and smoking cessation if currently smoking.Ne xt Visit: {{1 2 3 4 5 6* 7 8 9 10 11 12} }{{week(s) month(s)* }} Health Concerns Section Related Observation LastModified by Organization Detai ls LastModified Time None Recorded Concern Status LastModified by Organization Details LastModified Time None Recorded Advance Directives Directive None Recorded Payers Encounter Date Sequence Insurance Name Policy Number Policy Vazquez Covered Member ID Vazquez Member ID Guarantor Name 06/15/2014 [facility] REEMA Donohue [id number] Jimmy Donohue 06/07/2023 1 [employer] - ALLIED BENEFITS - OPEN ACCESS [id number] Jimmy Donohue [id number] Jimmy Donohue 06/28/2023 1 [employer] - [employer]ENEF[employer] - OPEN ACCESS [id number] Jimmy Donohue [id number] Jimmy Donohue 10/05/2023 1 [employer] - [employer]ENEF[employer] - OPEN ACCESS [id number] Jimmy Donohue [id number] Jimmy Donohue Notes Date Note Type Note Provider Name and Address Organization Details Recorded Time 06/07/2023 text/html 33 year old male here to establish care and has complains of difficulty with sleeping. He states he has GERD, HTN, asthma, anemia, atrial fibrillation, headaches, and joint pain in left ring finger. He reports he work at night. He is concerned about having sleep apnea and has been told he stops breathing in his sleep and states snoring very loudly like gasping for air. He reports history of psoriasis and bad break out recently. he states he has cyst on buttock left side. DIYA Tidwell Attn: Accounting[address] [place], [address], [facility] 06/09/2023 19:31:16 06/28/2023 text/html Jimmy is here for blood pressure check, he was started on amlodipine 5 mg PO daily and reports no side effects. He is still having pain in the right ring finger at the knuckle. He hurt it 2 months ago bowling and it has not resolved. No reduced ROM, just pain with gripping and feels weak. DIYA Tidwell Attn: Accounting[address] [facility], [place], [address], [facility] - [facility] 06/28/2023 09:59:44 10/05/2023 text/html Hypertension F/UReported bypatient.Associat ed Symptoms:no dizziness; no lightheadedness; no chest pain; no shortness of breath; no palpitations; no edema; no calf pain with exertion Lifestyle:regular exercise; limiting/avoiding salt Medications:taking medications as directed; no side effects from medication DIYA Tidwell Attn: Accounting[address] [facility], [place], [address], [place] - [facility] 10/05/2023 14:50:30
--- OUTSIDE RECORDS SUMMARY | 2024-05-14 23:00 | XMS_ITS | Referral Summary ---
Author Organization [facility] [address] [place] [address] Care Team Providers Care Passport Application Examiner Name Role Phone Cara Nguyen NP Primary Care Provider [phone] Encounters Date Type Department Care Team Description 05/02/2024 10:15 AM TILE EDGER Office Visit [facility] Pulmonology [address] [place] [address] [place] [phone] Suri Anaya NP Snoring (Primary Dx); Obstructive sleep apnea 02/13/2024 Telephone [facility] Lab [address] [place] [address] Karma Randall, [facility] Sleep Study Results/CPAP order from Last 3 Months Allergies No known active allergies Medications amLODIPine (NORVASC) 10 mg tablet Take 1 tablet (10 mg total) by mouth daily Active Active Problems Problem Noted Date Diagnosed Date Obstructive sleep apnea 05/02/2024 Assessment & Plan (05/02/2024 10:19 AM TILE EDGER): Patient continue to wear his CPAP at auto titrating range of 5-20 cm water pressure while sleeping. His DME is [facility] home care. Snoring 12/01/2023 Assessment & Plan (12/01/2023 11:26 AM CDT): The patient presents with snoring, witnessed apneas and excessive daytime hypersomnia. I have ordered a daytime polysomnogram with a split protocol if necessary and no MSLT. 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 Social History Tobacco Use Types Packs/Day Years Used Date Smoking Tobacco: Never Passive Smoke Exposure: Past Smokeless Tobacco: Never Tobacco Cessation:Counseling Given: Not Answered AUDIT-C Answer Date Recorded Frequency of Alcohol Consumption Not on file 12/01/2023 Q2: How many drinks containi ng alcohol do you have on a typical day when you are drinking? Patient does not drink Frequency of Binge Drinking Not on file 11/19 Sex and Gender Information Value Date Recorded Sex Assigned at Not on file Legal Sex Male 6:56 PM TILE EDGER Gender Identity Not on file Sexual Orientation Not on file Last Filed Vital Signs Vital Sign Reading Time Taken Comments Blood Pressure 140/83 05/02/2024 10:01 AM TILE EDGER Pulse 82 05/02/2024 10:01 AM TILE EDGER Temperature 35.7 C (96.3 F) 05/02/2024 10:01 AM TILE EDGER Respiratory Rate 18 05/02/2024 10:01 AM TILE EDGER Oxygen Saturation 97% 05/02/2024 10:01 AM TILE EDGER Inhaled Oxygen Concentration - - Weight 117.5 kg (259 lb) 05/02/2024 10:01 AM TILE EDGER Height 175.3 cm (5' 9.02 ) 05/02/2024 10:01 AM C Body Mass Index 38.23 05/02/2024 10:01 AM TILE EDGER Plan of Treatment Not on file Insurance [employer] OPEN ACCESS Care Teams Passport Application Examiner Relationship Specialty Start Date End Date Cara Nguyen NP [phone] (work) PCP - General Nurse Practitioner 06/22/23
--- OUTSIDE RECORDS SUMMARY | 2024-05-14 23:00 | XMS_ITS | Clinical Summary ---
Author Organization [facility] [address] [place] [address] Care Team Providers Care Net Solutions Architect Name Role Phone Cara Nguyen NP Primary Care Provider [phone] Allergies No known active allergies Medications amLODIPine (NORVASC) 10 mg tablet Take 1 tablet (10 mg total) by mouth daily Active Active Problems Problem Noted Date Diagnosed Date Obstructive sleep apnea 05/02/2024 Assessment & Plan (05/02/2024 10:19 AM GERIATRIC SOCIAL WORKER): Patient continue to wear his CPAP at auto titrating range of 5-20 cm water pressure while sleeping. His DME is [facility] home care. Snoring 12/01/2023 Assessment & Plan (12/01/2023 11:26 AM CDT): The patient presents with snoring, witnessed apneas and excessive daytime hypersomnia. I have ordered a daytime polysomnogram with a split protocol if necessary and no MSLT. 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 Encounters Date Type Department Care Team Description 05/02/2024 10:15 AM GERIATRIC SOCIAL WORKER Office Visit [facility] Pulmonology [address] [place] [address] [place] [phone] Suri Anaya NP Snoring (Primary Dx); Obstructive sleep apnea 02/13/2024 Telephone [facility] Sleep Lab [address] [place] [address] Karma Randall, [facility] Sleep Study Results/CPAP order from Last 3 Months Family History Medical History Relation Name Comments Diabetes Mother Hypertension Mother Relation Name Status Comments Mother Social History Tobacco Use Types Packs/Day Years [...] on file Legal Sex Male 6:56 PM GERIATRIC SOCIAL WORKER Gender Identity Not on file Sexual Orientation Not on file Obstetrics History Last Filed Vital Signs Vital Sign Reading Time Taken Comments Blood Pressure 140/83 05/02/2024 10:01 AM GERIATRIC SOCIAL WORKER Pulse 82 05/02/2024 10:01 AM GERIATRIC SOCIAL WORKER Temperature 35.7 C (96.3 F) 05/02/2024 10:01 AM GERIATRIC SOCIAL WORKER Respiratory Rate 18 05/02/2024 10:01 AM GERIATRIC SOCIAL WORKER Oxygen Saturation 97% 05/02/2024 10:01 AM GERIATRIC SOCIAL WORKER Inhaled Oxygen Concentration - - Weight 117.5 kg (259 lb) 05/02/2024 10:01 AM GERIATRIC SOCIAL WORKER Height 175.3 cm (5' 9.02 ) 05/02/2024 10:01 AM C Body Mass Index 38.23 05/02/2024 10:01 AM GERIATRIC SOCIAL WORKER Plan of Treatment Health Maintenance Due Date Last Done Comments Depression Screening 1992 Hepatitis C Screening 1992 Regular Well Visit/Exam 18-64 2010 Pneumococcal vaccine <65 (1 of 2 - PCV) 06/01/2011 Varicella Vaccines (2 of 2 - 13+ 2-dose series) 07/13/2014 06/15/2014 Covid-19 Vaccine ( season) 2023 11/30/2020, 11/09/2020 Influenza Vaccine (#1) 2023 05/17/2014 DTaP/Tdap/Td Vaccine (8 - Td or Tdap) 03/22/2032 03/22/2022, 11/27/2007, 11/12/1997, Additional history exists Hepatitis B Screening Completed 06/17/1998 , 01/23/1998, 11/12/1997 HPV Vaccines Aged Out No longer eligi ble based on patient's age to complete this topic Insurance [employer] OPEN ACCESS Care Teams Net Solutions Architect Relationship Specialty Start Date End Date Cara Nguyen NP PCP - General Nurse Practitioner 06/22/23
--- OUTSIDE RECORDS SUMMARY | 2024-05-14 23:00 | XMS_ITS | Clinical Summary ---
Author Organization [facility] Address [address] [place] [address] Care Team Providers Care Furniture Lumber Production Worker Name Role Phone Cara Nguyen NP Primary Care Provider Allergies No known active allergies Medications amLODIPine (NORVASC) 5 MG tablet Take 1 tablet (5 mg total) by mouth daily. 30 tablet 2 Active methylPREDNISolone, MARGARETH, (MEDROL DOSEPAK) 4 MG tablet 6 TABLETS ON DAY ONE, 5 TABLETS DAY TWO, 4 TABLETS DAY THREE, 3 TABLETS DAY FOUR, 2 TABLETS DAY FIVE, AND 1 TABLET DAY SIX 1 each 2 Active ondansetron (ZOFRAN-ODT) 4 MG disintegrating tablet Take 1 tablet (4 mg total) by mouth every 8 (eight) hours as needed. 20 tablet 3 Active traMADol (ULTRAM) 50 MG tabletIndications:A cute Pain < 7 Day Supply Take 1 tablet (50 mg total) by mouth every 8 (eight) hours as needed for Pain. Indications: Acute Pain < 7 Day Supply 15 tablet 3 Active amLODIPine (NORVASC) 5 MG tablet Take 1 tablet (5 mg total) by mouth daily. 30 tablet 4 Active Immunizations Name Administration Dates Next Due Tdap (Boostrix) 03/22/2022 Social History Tobacco Use Types Packs/Day Years Used Date Smoking Tobacco: Never Smokeless Tobacco: Never Tobacco Cessation:Counseling Given: Not Answered Alcohol Use Standard Drinks/Week Comments No 0 (1 standard drink = 0.6 oz pur e alcohol) Sex and Gender Information Value Date Recorded Sex Assigned at Not on file Legal Sex Male 7:38 PM CDT Gender Identity Not on file Sexual Orientation Not on file Last Filed Vital Signs Vital Sign Reading Time Taken Comments Blood Pressure 134/85 05/12/2023 1:00 AM SWEEPER CLEANER INDUSTRIAL Pulse 82 05/11/2023 11:28 PM SWEEPER CLEANER INDUSTRIAL Temperature 36.7 C (98.1 F) 05/11/2023 11:28 PM SWEEPER CLEANER INDUSTRIAL Respiratory Rate 18 05/11/2023 11:2 8 PM SWEEPER CLEANER INDUSTRIAL Oxygen Saturation 97% 05/12/2023 1:00 AM SWEEPER CLEANER INDUSTRIAL Inhaled Oxygen Concentration - - Weight 126.5 kg (278 lb 14.1 oz) 2023 11:28 PM SWEEPER CLEANER INDUSTRIAL Height 172.7 cm (5' 8 ) 05/11/2023 11:2 8 PM SWEEPER CLEANER INDUSTRIAL Body Mass Index 42.4 05/11/2023 11:28 PM SWEEPER CLEANER INDUSTRIAL Plan of Treatment Health Maintenance Due Date Last Done Comments Annual Physical 06/01/1995 Hepatitis C 2010 COVID-19 Vaccine ( season) 2023 11/30/2020, 11/09/2020 Influenza Adult (#1) 2023 05/17/2014 DTaP, Tdap and Td Vaccines (8 - Td or Tdap) 03/22/2032 03/22/2022, 11/27/2007, 11/12/1997, Additional history exists Hepatitis B Vaccines Completed 06/17/1998, 01/23/1998, 11/12/1997 Meningococcal Vaccine Aged Out 11/27/2007 No danilo go eligible based on patient's age to complete this topic HPV Vaccines Aged Out No longer eligi ble based on patient's age to complete this topic Meningococcal B Vaccine Aged Out No l onger eligible based on patient's age to complete this topic Pneumococcal Vaccine: Pediatrics (0 to 5 Years) and At-Risk Patients (6 to 64 Years) Aged Out No longer eligible based on patient's age to complete this topic RSV Immunizations Under 20 Months Aged Out No longer eligible based on patient's age to complete this topic Insurance [employer] Care Teams Furniture Lumber Production Worker Relationship Specialty Start Date End Date Cara Nguyen NP [address] [place] [phone] PCP - General Nurse Practitioner Family 06/28/23
--- NOTE | 2024-05-14 23:42 | ECG_ITS ---
Test Date: 2024-05-14 23:45:40 Measurements Intervals [place] Rate: 71 P: 30 MA: 206 QRS: 17 QRSD: 92 T: 7 QT: 372 QTc: 406 Interpretive Statements SINUS RHYTHM LOW QRS VOLTAGE IN PRECORDIAL LEADS BORDERLINE T WAVE ABNORMALITY- INFERIOR LEADS BORDERLINE ECG No previous ECG available for comparison Electronically Signed On 05-15-2024 06:48:31 PLANT MAINTENANCE MANAGER by Jayro Luis D.O.
[2024-05-14 23:44] VITALS: BP 134/91; PULSE 73; RESP 16; TEMP 37; O2SAT 100
[2024-05-14 23:59] LABS: Basophils Percent Auto 0.6 % (0.2-1.2); Eosinophils Absolute Auto 0.1 K/mm3 (0-0.3); Eosinophils Percent Auto 2.7 % (0-4.4); Hematocrit 44.4 % (42.0-52.0); Hemoglobin 15.1 g/dL (14.0-18.0); Lymphocytes Absolute Auto 1.97 K/mm3 (0.9-3.2); Lymphocytes Percent Auto 41.2 % (18.3-44.2); Mean Corpuscular Hemoglobin 26.9 pg (26-34); Mean Platelet Volume 9.9 fl (7.4-10.4); Monocytes Absolute Auto 0.7 K/mm3 (0.1-0.6); Neutrophils Percent Auto 41.5 % (45.5-73.1); Platelet Count Result 270 k/mm3 (150-375); Red Blood Count 5.62 M/mm3 (4.6-6.20); Red Cell Distribution Width 13.4 % (11.5-14.5); White Blood Count 4.8 K/mm3 (4.5-10.0)
[2024-05-15 00:35] LABS: Influenza A QL RT-PCR Negative (Negative); Influenza B QL RT-PCR Negative (Negative); RSV RNA, RT-PCR Negative (Negative); SARS-CoV-2 RNA PCR Negative (Negative)
[2024-05-15 00:36] LABS: Alanine Aminotransferase 26 U/L (6-50); Albumin Level 3.9 g/dL (3.5-5.1); Alkaline Phosphatase 49 U/L (38-126); Anion Gap 9 mmol/L (4-12); Aspartate Amino Transferase 25 U/L (17-59); Bilirubin,Total 0.4 mg/dL (0.2-1.3); Blood Urea Nitrogen 16 mg/dL (9-20); Calcium 8.7 mg/dL (8.4-10.2); Carbon Dioxide 27 mmol/L (22-30); Chloride 103 mmol/L (98-107); Estimated CRCL calculation 110 ml/min; Estimated Glomerular Filt Rate > 60; Glucose 89 mg/dL (65-110); Lipase 91 U/L (23-300); Potassium 4.2 mmol/L (3.4-5.0); Sodium 139 mmol/L (137-145)
[2024-05-15 03:01] LABS: Add Urine Microscopic? NO; Appearance Urine Clear (Clear); Bilirubin Urine Negative (Negative); Blood Urine Negative (Negative); Color Urine Yellow (Yellow); Glucose Urine UA Negative (Negative); Ketones Urine Negative (Negative); Leukocyte Esterase Ur Negative LEU/UL (Negative); Nitrate Urine Negative (Negative); Protein Urine Negative (Negative); Specific Grav Ur 1.017 (1.001-1.035); Urobilinogen Urine 0.2 mg/dL (<2.0)
--- NOTE | 2024-05-15 03:59 | ED_ITS ---
HPI - Nausea/Vomiting/Diarrhea General Chief complaint: Nausea/Vomiting/Diarrhea Stated complaint: vomiting Time Seen by Provider: 05/15/24 03:46 History of Present Illness HPI Narrative: 33-year-old male with a past medical history including hypertension and obstructive sleep apnea. Presents to the emergency room today with complaint of nauseousness, vomiting, diarrhea and some chest discomfort. Symptoms going on for 3 days. States that the diarrhea has slowly resolved but he still feels slightly nauseous. Attributes the chest pain to the persistent vomiting he has been having. Denies any fever chills. No shortness of breath. Exhibits pain with coughing and moving. Denies any cardiac history of cardiac disease. No back pain or abdominal pain. No blood in the urine or stool. Denies any hematuria. States he feels slightly dehydrated. 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 Related Data Home Medications ?Medication ?Instructions ?Recorded ?Confirmed ?Last Taken ?Type amlodipine 10 mg tablet mg 04/06/24 Unknown History Allergies Allergy/AdvReac Type Severity Reaction Status Date / Time No Known Allergies Allergy Verified 05/14/24 23:49 Review of Systems 2 Review of Systems: As reviewed above in HPI Exam 2 Narrative: GENERAL: [Well-appearing, well-nourished, and in no acute distress.] HEAD: [Normocephalic, atraumatic.] EYES: [PERRLA and EOMI.] ENT: Nares clear, no rhinorrhea or epistaxis. Mucous membranes dry. NECK: Supple. CHEST: [Clear to auscultation. No respiratory distress.] HEART: [Regular rate and rhythm]. No murmur heard. [Normal peripheral pulses.] ABDOMEN: [Soft, nondistended], [nontender], [No rigidity or guarding] EXTREMITIES: Normal range of motion. [No edema.] SKIN: Warm, dry, no rash. NEURO: [No focal deficits]. Alert and oriented [x3.] PSYCH: [Normal mood and affect.] Course Vital Signs Vital signs: Vital Signs Temperature 37.0 C 05/14/24 23:44 Pulse Rate 73 05/14/24 23:44 Respiratory Rate 16 05/14/24 23:44 Blood Pressure 134/91 H 05/14/24 23:44 Pulse Oximetry 100 05/14/24 23:44 Oxygen Delivery Room Air 02/24/25 23:44 Temperature 37.0 C 05/14/24 23:44 Pulse Rate 73 05/14/24 23:44 Respiratory Rate 16 05/14/24 23:44 Blood Pressure 134/91 H 05/14/24 23:44 Pulse Oximetry 100 05/14/24 23:44 Oxygen Delivery Room Air 05/14/24 23:44 MDM - Nausea/Vomiting/Diarrhea MDM Narrative Medical decision making narrative: 33-year-old healthy male with a past medical history including hypertension MIKE presenting to the emergency department with nausea, vomiting, diarrhea and some chest discomfort for last 3 days. Symptoms started with nauseousness and vomiting and several episodes of diarrhea. Chest pain started after multiple episodes of vomiting. Does not look ill, nontoxic appearing, no fever, chills, hypoxia. No significant blood pressure concerns. He is otherwise well- appearing and otherwise asymptomatic here except from some nauseousness. States his diarrhea similar resolved. Clear breath sounds throughout both lung valencia. No crepitus with palpation. Suspicion presently is for potential viral syndrome, viral gastritis, COVID, influenza. Low suspicion intra-abdominal or intrathoracic process such as gastritis, GERD, Boerhaave syndrome or Mindy- Acharya tear. Workup was ordered including a CBC, CMP, lipase, troponin, EKG and chest x-ray. He was given a combination medications for symptom control including Bentyl, Zofran, Maalox, Zofran and Pepcid. He was given a fluid bolus and re-evaluated. Workup shows no leukocytosis or anemia. Normal platelet count. Electrolytes within normal limits, normal renal and hepatic function panel. Normal glucose. Troponin is pending. Negative lipase. Normal urinalysis. Negative COVID, flu, RSV. Chest x-ray shows no acute cardiopulmonary disease. EKG shows normal sinus rhythm, no ST segment elevations, depressions. No ectopy, QTC 406, QRS interval 92, DC interval 202. Overall no previous EKG for comparison and final interpretation is sinus rhythm. Troponin is negative. Patient re-evaluated with improvement symptoms. He is safe and stable for discharge home at this time. Will send home with symptom controlling medications including Zofran, loperamide and Bentyl. Medical Records Attestation: I reviewed the patient's medical records. Lab Data Attestation: I reviewed the patient's lab results. 05/14/24 23:52 05/14/24 23:52 Labs: Lab Results 05/14/24 05/15/24 Range/Units 23:52 02:40 WBC 4.8 (4.5-10.0) K/mm3 RBC 5.62 (4.6-6.20) M/mm3 Hgb 15.1 (14.0-18.0) g/dL Hct 44.4 (42.0-52.0) % MCV 79.0 L (80-100) fl MCH 26.9 (26-34) pg MCHC 34.0 (32-36) g/dl RDW 13.4 (11.5-14.5) % Plt Count 270 (150-375) k/mm3 MPV 9.9 (7.4-10.4) fl Immature Gran % (Auto) 0.0 (0-0.5) % Neut % (Auto) 41.5 L (45.5-73.1) % Lymph % (Auto) 41.2 (18.3-44.2) % [place] % (Auto) 14.0 H (2.6-8.5) % Eos % (Auto) 2.7 (0-4.4) % Baso % (Auto) 0.6 (0.2-1.2) % Lymph # (Auto) 1.97 (0.9-3.2) K/mm3 [place] # (Auto) 0.7 H (0.1-0.6) K/mm3 Eos # (Auto) 0.1 (0-0.3) K/mm3 Baso # (Auto) 0.0 (0.0-0.1) K/mm3 Abs Immat Gran (auto) 0.00 (0.00-0.031) K/mm3 Absolute Neuts (auto) 2.0 (1.3-6.7) K/mm3 Absolute Nucleated RBC 0.000 (0.0-0.012) K/mm3 Nucleated RBC % 0.0 (0.0-0.2) % Sodium 139 (137-145) mmol/L Potassium 4.2 (3.4-5.0) mmol/L Chloride 103 (98-107) mmol/L Carbon Dioxide 27 (22-30) mmol/L Anion Gap 9 (4-12) mmol/L BUN 16 (9-20) mg/dL Creatinine 1.07 (0.7-1.3) mg/dL Estim Creat Clear Calc 110 ml/min Estimated GFR > 60 (59 - ) Glucose 89 (65-110) mg/dL Calcium 8.7 (8.4-10.2) mg/dL Total Bilirubin 0.4 (0.2-1.3) mg/dL AST 25 (17-59) U/L ALT 26 (6-50) U/L Alkaline Phosphatase 49 (38-126) U/L Troponin I < 0.012 (0.000-0.034) ng/mL Total Protein 7.0 (6.3-8.2) g/dL Albumin 3.9 (3.5-5.1) g/dL Lipase 91 (23-300) U/L Urine Color Yellow (Yellow) Urine Appearance Clear (Clear) Urine pH 6.0 (5.0-9.0) Ur Specific [place] 1.017 (1.001-1.035) Urine Protein Negative (Negative) mg/dL Urine Glucose (UA) Negative (Negative) mg/dL Urine Ketones Negative (Negative) mg/dL Ur Blood (Man) Negative (Negative) Urine Nitrate Negative (Negative) Urine Bilirubin Negative (Negative) Urine Urobilinogen 0.2 (<2.0) mg/dL Leukocyte Esterase Rfl Negative (Negative) EMANUEL/UL Influenza A (RT-PCR) Negative (Negative) Influenza B (RT-PCR) Negative (Negative) RSV (RT-PCR) Negative (Negative) SARS-CoV-2 RNA (RT-PCR) Negative (Negative) Imaging Data Attestation: I personally reviewed and interpreted this imaging study as follows: My impression: Impressions Chest X-Ray 05/14/24 23:57 IMPRESSION: No acute cardiopulmonary process. ECG Data EKG #1: Attestation: I personally reviewed and interpreted this ECG as follows: ECG completion date: 05/14/24 ECG completion time: 23:45 Prior ECG tracings: not available for review Interpretation: Sinus rhythm, regular rate, regular rhythm and axis. No ST segment elevations, depressions or inversions. No ectopy. Overall interpretation normal sinus, no previous EKG for comparison. QTC 406, QRS 92, DC 206 Discharge Plan Discharge Clinical Impression: Gastroenteritis, Chest pain, Nausea & vomiting, Diarrhea Patient Disposition: Home, Self-Care Condition: Stable Instructions: Antibiotic Form, Gastroenteritis (ED), Acute Nausea and Vomiting (ED), Acute Diarrhea (ED) Additional Instructions: Your workup today is very reassuring, no signs organ damage or heart damage, your symptoms are likely secondary to his stomach bug or gastroenteritis which is a viral illness. We will send you home with some symptom controlling medications. Follow-up with regular doctor. Return with any concerns. Patient Language: Emirati Prescriptions: New loperamide [Anti-Diarrheal (loperamide)] 2 mg capsule 2 mg PO Q6H PRN (Reason: loose stool) Qty: 14 0RF dicyclomine 20 mg tablet 20 mg PO TID PRN (Reason: abdominal pain) Qty: 14 0RF ondansetron 4 mg tablet,disintegrating 4 mg PO Q8H PRN (Reason: nausea and vomiting) Qty: 10 0RF No Action amlodipine 10 mg tablet Follow-up/Referrals: UNKNOWN,DOCTOR [Primary Care Provider] - Time of Disposition: 05:09
[2024-05-15] MEDS: MAG HYDROX/AL HYDROX/SIMETH 30 ML UDC PO (04:19)
[2024-05-15] MEDS: DICYCLOMINE HCL 10 MG CAPSULE 20 MG PO (04:20)
[2024-05-15 04:24] LABS: Troponin I < 0.012 ng/mL (0.000-0.034)
[2024-05-15] MEDS: ONDANSETRON INJ 4 MG/2 ML VIAL IV PUSH (04:26)
[2024-05-15] MEDS: FAMOTIDINE 20 MG/2 ML VIAL IV PUSH (04:27)
[2024-05-15] MEDS: LACTATED RINGERS 1,000 ML 999 ML IV CONT (04:27)
--- OUTSIDE RECORDS SUMMARY | 2024-05-15 05:12 | XMS_ITS | Referral Summary ---
Author Organization [facility] [address] [place] [id number] Care Team Providers Care Tool Grinding Technician Name Role Phone Cara Nguyen NP Primary Care Provider [phone] Encounters Date Type Department Care Team Description 05/02/2024 10:15 AM SALES OPERATIONS CONSULTANT Office Visit [facility] Pulmonology [address] [place] [address] [place] [phone] uSri Anaya NP Snoring (Primary Dx); Obstructive sleep apnea 02/13/2024 Telephone [facility] [address] [place] [address] Karma Randall, [facility] Sleep Study Results/CPAP order from Last 3 Months Allergies No known active allergies Medications amLODIPine (NORVASC) 10 mg tablet Take 1 tablet (10 mg total) by mouth daily Active Active Problems Problem Noted Date Diagnosed Date Obstructive sleep apnea 05/02/2024 Assessment & Plan (05/02/2024 10:19 AM SALES OPERATIONS CONSULTANT): Patient continue to wear his CPAP at auto titrating range of 5-20 cm water pressure while sleeping. His DME is [facility] home care. Snoring 12/01/2023 Assessment & Plan (12/01/2023 11:26 AM CDT): The patient presents with snoring, witnessed apneas and excessive daytime hypersomnia. I have ordered a daytime polysomnogram with a split protocol if necessary and no MSLT. 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 He will follow up with me [...] on file Legal Sex Male 6:56 PM SALES OPERATIONS CONSULTANT Gender Identity Not on file Sexual Orientation Not on file Last Filed Vital Signs Vital Sign Reading Time Taken Comments Blood Pressure 140/83 05/02/2024 10:01 AM SALES OPERATIONS CONSULTANT Pulse 82 05/02/2024 10:01 AM SALES OPERATIONS CONSULTANT Temperature 35.7 C (96.3 F) 05/02/2024 10:01 AM SALES OPERATIONS CONSULTANT Respiratory Rate 18 05/02/2024 10:01 AM SALES OPERATIONS CONSULTANT Oxygen Saturation 97% 05/02/2024 10:01 AM SALES OPERATIONS CONSULTANT Inhaled Oxygen Concentration - - Weight 117.5 kg (259 lb) 05/02/2024 10:01 AM SALES OPERATIONS CONSULTANT Height 175.3 cm (5' 9.02 ) 05/02/2024 10:01 AM C Body Mass Index 38.23 05/02/2024 10:01 AM SALES OPERATIONS CONSULTANT Plan of Treatment Not on file Insurance [employer] OPEN ACCESS Care Teams Tool Grinding Technician Relationship Specialty Start Date End Date Cara Nguyen NP [phone] (work) PCP - General Nurse Practitioner 06/22/23
--- OUTSIDE RECORDS SUMMARY | 2024-05-15 05:12 | XMS_ITS | Clinical Summary ---
Author Organization [facility] Address [address] [place] [address] Care Team Providers Care Controlled Atmospheric Furnace Brazer Name Role Phone Cara Nguyen NP Primary Care Provider [phone] Allergies No known active allergies Medications amLODIPine [...] Comments Blood Pressure 134/85 05/12/2023 1:00 AM ELECTION WATCHER Pulse 82 05/11/2023 11:28 PM ELECTION WATCHER Temperature 36.7 C (98.1 F) 05/11/2023 11:28 PM ELECTION WATCHER Respiratory Rate 18 05/11/2023 11:2 8 PM ELECTION WATCHER Oxygen Saturation 97% 05/12/2023 1:00 AM ELECTION WATCHER Inhaled Oxygen Concentration - - Weight 126.5 kg (278 lb 14.1 oz) 2023 11:28 PM ELECTION WATCHER Height 172.7 cm (5' 8 ) 05/11/2023 11:2 8 PM ELECTION WATCHER Body Mass Index 42.4 05/11/2023 11:28 PM ELECTION WATCHER Plan of Treatment Health Maintenance Due Date [...] patient's age to complete this topic Insurance [employer] Care Teams Controlled Atmospheric Furnace Brazer Relationship Specialty Start Date End Date Cara Nguyen NP [address] [place] [phone] PCP - General Nurse Practitioner Family 06/28/23
--- OUTSIDE RECORDS SUMMARY | 2024-05-15 05:12 | XMS_ITS | Clinical Summary ---
Author Organization [facility] [address] [place] [phone] Care Team Providers Care Core Inspector Name Role Phone Cara Nguyen NP Primary Care Provider [phone] Allergies No known active allergies Medications amLODIPine (NORVASC) 10 mg tablet Take 1 tablet (10 mg total) by mouth daily Active Active Problems Problem Noted Date Diagnosed Date Obstructive sleep apnea 05/02/2024 Assessment & Plan (05/02/2024 10:19 AM CTC OPERATOR): Patient continue to wear his CPAP at auto titrating range of 5-20 cm water pressure while sleeping. His DME is [facility] home care. Snoring 12/01/2023 Assessment & Plan (12/01/2023 11:26 AM CDT): The patient presents with snoring, witnessed apneas and excessive daytime hypersomnia. I have ordered a daytime polysomnogram with a split protocol if necessary and no MSLT. 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 Encounters Date Type Department Care Team Description 05/02/2024 10:15 AM CTC OPERATOR Office Visit [facility] Pulmonology [address] [place] [address] [place] [phone] Suri Anaya NP Snoring (Primary Dx); Obstructive sleep apnea 02/13/2024 Telephone [facility] [address] [place] [address] Karma Randall, [facility] Sleep Study Results/CPAP order from Last 3 [...] on file Legal Sex Male 6:56 PM CTC OPERATOR Gender Identity Not on file Sexual Orientation Not on file Obstetrics History Last Filed Vital Signs Vital Sign Reading Time Taken Comments Blood Pressure 140/83 05/02/2024 10:01 AM CTC OPERATOR Pulse 82 05/02/2024 10:01 AM CTC OPERATOR Temperature 35.7 C (96.3 F) 05/02/2024 10:01 AM CTC OPERATOR Respiratory Rate 18 05/02/2024 10:01 AM CTC OPERATOR Oxygen Saturation 97% 05/02/2024 10:01 AM CTC OPERATOR Inhaled Oxygen Concentration - - Weight 117.5 kg (259 lb) 05/02/2024 10:01 AM CTC OPERATOR Height 175.3 cm (5' 9.02 ) 05/02/2024 10:01 AM C Body Mass Index 38.23 05/02/2024 10:01 AM CTC OPERATOR Plan of Treatment Health Maintenance Due Date [...] patient's age to complete this topic Insurance [employer] OPEN ACCESS Care Teams Core Inspector Relationship Specialty Start Date End Date Cara Nguyen NP PCP - General Nurse Practitioner 06/22/23
== END 2024-05-15 05:53 | disposition home or self-care (01) ==
LOC: ANHED 05-15 05:10
PROVIDERS: Emergency Provider Student in an Organized Health Care Education/Training Program
DX: K52.9 Noninfective gastroenteritis and colitis, unspecified (principal); R07.9 Chest pain, unspecified; I10 Essential (primary) hypertension; G47.33 Obstructive sleep apnea (adult) (pediatric); Z20.822 Contact with and (suspected) exposure to COVID-19
CPT/HCPCS: 36415; 71046; 80053; 81003; 83690; 84484; 85025; 87637; 93005; 96361; 96374; 96375; 99284; A9270; J2405; J7120

== ENCOUNTER 2024-09-29 09:49 | Emergency (ER) | payer OTHER, SELFPAY ==
--- NOTE | 2024-09-29 09:55 | ED_ITS ---
HPI - Extremity Problem General Chief complaint: Extremity Problem,Nontraumatic Stated complaint: R LEG PAIN Time Seen by Provider: 09/29/24 09:56 Source: patient, RN notes reviewed and old records reviewed Mode of arrival: ambulatory Limitations: no limitations History of Present Illness HPI Narrative: 34-year-old male presents to the [facility] with complaints of right calf pain for approximately 3 weeks. Has taken ibuprofen. Had similar issues and reports that a muscle relaxer has helped in the past. Related Data Home Medications ?Medication ?Instructions ?Recorded ?Confirmed ?Last Taken ?Type amlodipine 10 mg tablet mg 04/06/24 Unknown History Allergies Allergy/AdvReac Type Severity Reaction Status Date / Time No Known Allergies Allergy Verified 09/29/24 10:02 Review of Systems 2 Review of Systems: All systems reviewed & are unremarkable except as noted in HPI and below Constitutional: Constitutional: Reports no additional constitutional complaints Musculoskeletal: Musculoskeletal: Reports as per HPI and Reports other (Right lower posterior leg) Integumentary/Breasts: Skin/Breast: Reports system reviewed and no additional complaints, except as docu PMFSH Comments At the time of my signature, I reviewed and agree with the nursing past medical, surgical, social, and family history. There is no relevant family history pertinent to the patient complaint. Exam 2 Const: General: cooperative, healthy appearing, comfortable, no acute distress, well developed, alert and well nourished Nutritional Appearance: w ell nourished Orientation/consciousness: patient oriented x3 Limitations: no limitations HENMT: Head: normal to inspection Eyes: General: appearance normal, both eyes and all related structures A lignment and Position: alignment normal Neck: Neck: normal visual inspection, full ROM, no lymphadenopathy and no meningeal signs Chest: Chest palpation & inspection: normal inspection of the chest Resp: Effort & Inspection: normal respiratory effort and able to speak in complete sentences Cardio: Rate: regular rate Skin: General skin exam: normal color and no rashes or lesions noted Neuro: General: patient oriented x3, gait normal, moves all extremities and no meningeal signs Cognition (Neuro): normal cognition Speech: normal speech Gait exam (Neuro): Normal gait present Extrem: General: normal to inspection, full ROM, capillary refill normal and normal gait Right lower extremity: full ROM, normal capillary refill and lower leg Details: tenderness and no edema; no localized swelling, no abrasions, no lacerations, no ecchymosis, no crepitus, no foreign bodies, no penetrating wound, no deformity and no unusual warmth Ankle/foot/toe images: 1. Reports tenderness, no erythema, ecchymosis or swelling noted. Unable to consistently reproduce pain. Has full range of motion of the ankle. Capillary refill under 2 seconds Psych: Appearance: grossly normal and well kempt Mental Status: mental status grossly normal Speech and movement: Normal speech and movement present and Clear speech present Affect: normal affect Attitude: cooperative Course Course Level of Care: Express Care Visit Vital Signs Vital signs: Vital Signs Temperature 97.8 F 09/29/24 09:58 Pulse Rate 94 09/29/24 09:58 Respiratory Rate 16 09/29/24 09:58 Blood Pressure 137/85 09/29/24 09:58 Pulse Oximetry 98 09/29/24 09:58 Temperature 97.8 F 09/29/24 09:58 Pulse Rate 94 09/29/24 09:58 Respiratory Rate 16 09/29/24 09:58 Blood Pressure 137/85 09/29/24 09:58 Pulse Oximetry 98 09/29/24 09:58 Reviewed MDM - Extremity (Nontraumatic) MDM Narrative Medical decision making narrative: Patient sitting in exam room. Patient is nontoxic, vitals stable. Patient presents with posterior lower leg pain with walking intermittently. Unable to reproduce pain. Denies any injury. No erythema, ecchymosis noted. Patient reports he has had similar issues in the past and a muscle relaxer has helped. Patient appropriate for outpatient treatment with close follow-up Discharge instructions reviewed with patient, as well as provided in writing per nursing staff. The instructions also include specific and strict return/GO TO THE ER as well as f/u information. All questions have been answered, and the patient deny any further questions with discharge and discharge plan. Some parts of this dictation were generated by voice recognition software and may contain typographical and/or grammatical inaccuracies. Differential Diagnosis Differential diagnosis: Likely other (Sprain, strain, tendinitis, Achilles) Critical Care Time Critical Care Time Critical Care Time: No Discharge Plan Discharge Clinical Impression: Leg pain, right Patient Disposition: Home Condition: Stable Instructions: Antibiotic Form, Leg Sprain (ED) Additional Instructions: Wear good supportive shoes at all times. Ice should be applied to help reduce swelling. It can be used for 20 to 30 minutes, every 2-3 hours while awake. Do not apply ice directly to your skin. You can alternate ibuprofen 600mg and Tylenol 650mg every 4 hours as needed for pain Please schedule a follow-up visit with your personal physician for further evaluation and treatment within 2 weeks especially if symptoms persist. For new or worsening symptoms go directly to the emergency room Patient Language: Polish Prescriptions: New baclofen 10 mg tablet 10 mg PO TID PRN (Reason: muscle pain) Qty: 10 0RF No Action amlodipine 10 mg tablet loperamide [Anti-Diarrheal (loperamide)] 2 mg capsule 2 mg PO Q6H PRN (Reason: loose stool) Qty: 14 0RF dicyclomine 20 mg tablet 20 mg PO TID PRN (Reason: abdominal pain) Qty: 14 0RF ondansetron 4 mg tablet,disintegrating 4 mg PO Q8H PRN (Reason: nausea and vomiting) Qty: 10 0RF Follow-up/Referrals: UNKNOWN,DOCTOR [Primary Care Provider] - Stand Alone Forms: Work/School Release IP Time of Disposition: 10:03
[2024-09-29 09:58] VITALS: BP 137/85; PULSE 94; RESP 16; TEMP 36.6; O2SAT 98
== END 2024-09-29 10:20 | disposition home or self-care (01) ==
PROVIDERS: Emergency Provider Nurse Practitioner
DX: M79.661 Pain in right lower leg (principal)
CPT/HCPCS: 99213; G0463

== ENCOUNTER 2024-10-06 10:07 | Emergency (ER) | payer OTHER, SELFPAY ==
[2024-10-06 10:13] VITALS: BP 137/78; PULSE 75; RESP 16; TEMP 36.6; O2SAT 99
--- NOTE | 2024-10-06 10:52 | ED_ITS ---
HPI - Skin/Abscess/Foreign Bdy General Chief complaint: Dental/Oral Stated complaint: swollen gums/rash Time Seen by Provider: 10/06/24 10:25 Source: patient and RN notes reviewed Mode of arrival: ambulatory Limitations: no limitations History of Present Illness HPI narrative: 34-year-old male presents Express Care complaining of rash for approximately 5 days. He says he has a pruritic raised rash toes bilateral forearms, back of his hands, tops of his feet, and his inner thighs. Patient denies any new detergents, soaps, lotions, medications, or any changes in his daily habits. Patient reports the rash is pruritic. Patient says his significant other has a similar rash. Patient denies any concerns for STDs, fevers, body aches, chills, upper respiratory symptoms, any other other symptoms. Patient also says he has left lower gum swelling near his 2nd molar. Patient said he had a cavity filled to the right side of his lower gum but over the last 3 days he has noticed redness and swelling near the 2nd molar and hurts to eat. Related Data Home Medications ?Medication ?Instructions ?Recorded ?Confirmed ?Last Taken ?Type amlodipine 10 mg tablet mg 04/06/24 Unknown History phentermine 37.5 mg tablet mg 10/06/24 Unknown History Allergies Allergy/AdvReac Type Severity Reaction Status Date / Time No Known Allergies Allergy Verified 09/29/24 10:02 Review of Systems Review of Systems: CONSTITUTIONAL: Denies fever, chills, or sweats. EYES: Denies visual changes, redness, or discharge. ENT: Denies rhinorrhea, congestion, sore throat, trismus, difficulty clearing secretions, difficulty swallowing or otalgia. MOUTH: Positive for dental pain. CARDIOVASCULAR: Denies chest pain, palpitations, or edema. RESPIRATORY: Denies cough or dyspnea. GASTROINTESTINAL: Denies abdominal pain, nausea, vomiting, or diarrhea. GENITOURINARY: Denies dysuria or hematuria. SKIN: Positive for rash and itching. MUSCULOSKELETAL: Denies back pain, joint pain, or myalgia. NEUROLOGIC: Denies headache, numbness, or weakness. PSYCHIATRIC: Denies anxiety or depression. All other systems reviewed are negative, except as documented in HPI. PMFSH Comments At the time of my signature, I reviewed and agree with the nursing past medical, surgical, social, and family history. There is no relevant family history pertinent to the patient complaint. Exam Narrative: GENERAL: This is a well-nourished, well-developed adult, in no apparent distress. They are non ill-appearing, nontoxic appearing. HEAD: normocephalic, atraumatic. EYES: Sclera clear/white. Conjunctiva normal. Vision is grossly intact. Extraocular movements intact EARS: External ears normal, Hearing grossly intact. NOSE: External nose normal THROAT: Mucous membranes moist, posterior pharynx clear, without erythema or swelling. Uvula midline. OROPHARYNX: Gingivitis to left lower gum near 2nd molar. There is pain and swelling to the 2nd molar the left lower gum. No missing teeth, no gross tooth decay. No area of fluctuance or induration. No suspicious lesions, ulcerations, or rashes. No pain or swelling of the tongue. Tongue is normal. No Trismus. NECK: Neck supple, CARDIOVASCULAR: Regular rate and rhythm without murmurs, gallops, or rubs. RESPIRATORY: Clear to auscultation. Breath sounds equal bilaterally. No wheezes, rales, or rhonchi. SKIN: Very fine circular macular raised papular rash that is pruritic to the patient's posterior distal bilateral forearms, and dorsal surface bilateral hands, bilateral medial thighs, and dorsal surface of bilateral feet. Rash is nontender, no induration, no area of fluctuance, no exudate. Rash is not hot to touch. NEURO: awake, alert, and oriented to person, place and time. There were no obvious focal neurologic abnormalities. EXTREMITIES: No joint tenderness, effusion, or edema noted. Course Course Emergency Course: Portions of this record may have been created with voice recognition software Level of Care: Express Care Visit Vital Signs Vital signs: Vital Signs Temperature 97.8 F 10/06/24 10:13 Pulse Rate 75 10/06/24 10:13 Respiratory Rate 16 10/06/24 10:13 Blood Pressure 137/78 10/06/24 10:13 Pulse Oximetry 99 10/06/24 10:13 Oxygen Delivery Room Air 10/06/24 10:13 Temperature 97.8 F 10/06/24 10:13 Pulse Rate 75 10/06/24 10:13 Respiratory Rate 16 10/06/24 10:13 Blood Pressure 137/78 10/06/24 10:13 Pulse Oximetry 99 10/06/24 10:13 Oxygen Delivery Room Air 10/06/24 10:13 Reviewed MDM - Skin/Abscess/Foreign Bdy MDM Narrative Medical decision making narrative: Appears patient is likely developed dental infection, will treat with Augmentin. Patient is rash appears to be a contact dermatitis. Will treat with triamcinolone cream. No rash to the soles of feet, palmar surface of the hand, or inside mouth. Discussed physical exam findings. Advised supportive measures and signs/symptoms to go to the ER. Pt is appropriate for outpt treatment and f/u. Differential Diagnosis Differential diagnosis: Likely allergic reaction to drug, cellulitis, eczema and contact dermatitis Critical Care Time Critical Care Time Critical Care Time: No Discharge Plan Discharge Clinical Impression: Dental infection, Contact dermatitis Patient Disposition: Home Condition: Stable Instructions: Antibiotic Form, Contact Dermatitis (ED), Mouth Care (ED) Additional Instructions: Take the antibiotics as directed. You may alternate Tylenol and ibuprofen as needed for pain. Cusick your teeth and floss at least 2 times a day. You may use mouthwash after each brushing as well. Follow-up with dentist next week. If you develop worsening swelling, fevers, difficulty swallowing or breathing, difficulty opening her jaw, swelling under the tongue, or any other concerns please go to the ER immediately. Use the triamcinolone cream as directed apply only to the affected area. You may need to try sensitive skin detergents, lotions, or soaps, identify the irritant to the skin and avoid it. Patient Language: Nepali Prescriptions: New triamcinolone acetonide 0.5 % cream 1 applic topical BID 7 Days Qty: 15 0RF amoxicillin-pot clavulanate 875-125 mg tablet 1 tablet PO Q12H 7 Days Qty: 14 0RF No Action amlodipine 10 mg tablet baclofen 10 mg tablet 10 mg PO TID PRN (Reason: muscle pain) Qty: 10 0RF phentermine 37.5 mg tablet loperamide [Anti-Diarrheal (loperamide)] 2 mg capsule 2 mg PO Q6H PRN (Reason: loose stool) Qty: 14 0RF dicyclomine 20 mg tablet 20 mg PO TID PRN (Reason: abdominal pain) Qty: 14 0RF ondansetron 4 mg tablet,disintegrating 4 mg PO Q8H PRN (Reason: nausea and vomiting) Qty: 10 0RF Follow-up/Referrals: PHYSICIAN,SUBSTANCE ABUSE THERAPIST [Primary Care Provider] - Time of Disposition: 10:35
== END 2024-10-06 10:40 | disposition home or self-care (01) ==
DX: K04.7 Periapical abscess without sinus (principal); L25.9 Unspecified contact dermatitis, unspecified cause; I10 Essential (primary) hypertension
CPT/HCPCS: 99213; G0463

== ENCOUNTER 2024-11-06 08:01 | Emergency (ER) | payer OTHER, SELFPAY ==
--- NOTE | ~2024-11-06 | CT_ITS ---
EXAMINATION: CT brain wo con DATE: 11/06/2024 08:38 INDICATION: Head injury TECHNIQUE: Computed tomography (CT) of the head was performed without intravenous contrast. Sagittal and coronal reconstructions were performed. The mA was adjusted according to patient size. Iterative reconstruction technique was employed. The dose-length product was 605.33 mGy-cm. COMPARISON: None FINDINGS: No fracture. No acute intracranial hemorrhage, acute infarction or abnormal extra axial fluid collection. Ventricles are normal and symmetric. No mass/mass effect. Minimal bilateral mastoid effusions. The orbitsand paranasal sinuses are normal. IMPRESSION: 1. Normal brain. No fracture or acute intracranial process. Reviewed, dictated and finalized at location A.
[2024-11-06 08:16] VITALS: BP 152/94; PULSE 84; RESP 18; TEMP 36.8; O2SAT 98
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
== END 2024-11-06 09:15 | disposition home or self-care (01) ==
LOC: ANHED 08:40
PROVIDERS: Emergency Provider Emergency Medicine
DX: S06.0X0A Concussion without loss of consciousness, initial encounter (principal); Y04.2XXA Assault by strike against or bumped into by another person, initial encounter
CPT/HCPCS: 70450; 99284

== ENCOUNTER 2025-01-10 21:08 | Emergency (ER) | payer OTHER, SELFPAY ==
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
[2025-01-10 21:11] VITALS: BP 152/101; PULSE 76; RESP 16; TEMP 36.9; O2SAT 100
[2025-01-10 21:23] VITALS: BP 174/119; PULSE 90; RESP 17; O2SAT 100
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
[2025-01-10] MEDS: ACETAMINOPHEN 500 MG TABLET 1000 MG PO (21:28)
[2025-01-10] MEDS: IBUPROFEN 400 MG TABLET 800 MG PO (21:28)
[2025-01-10 22:13] VITALS: BP 139/94; PULSE 78; RESP 15; O2SAT 97
== END 2025-01-10 22:14 | disposition home or self-care (01) ==
PROVIDERS: Emergency Provider Student in an Organized Health Care Education/Training Program
DX: S13.4XXA Sprain of ligaments of cervical spine, initial encounter (principal); I10 Essential (primary) hypertension; V47.5XXA Car driver injured in collision with fixed or stationary object in traffic accident, initial encounter; Z79.899 Other long term (current) drug therapy
CPT/HCPCS: 70450; 72125; 99284; A9270

== ENCOUNTER 2025-02-08 17:21 | Emergency (ER) | payer OTHER, SELFPAY ==
--- NOTE | 2025-02-08 17:24 | ED_ITS ---
HPI - Ear Problem General Chief complaint: Ear Stated complaint: CLOGGED EARS Time Seen by Provider: 02/08/25 17:24 Source: patient Mode of arrival: ambulatory Limitations: no limitations History of Present Illness HPI Narrative: Jimmy is a 34-year-old male patient presenting to the clinic with complaints of decreased hearing and ear pain. States he had URI symptoms for 1 week. Denies any fevers, chills, body aches. Feels like he has got a lot of congestion in his ears. Related Data Home Medications ?Medication ?Instructions ?Recorded ?Confirmed ?Last Taken ?Type amlodipine 10 mg tablet mg 04/06/24 Unknown History phentermine 37.5 mg tablet mg 10/06/24 Unknown Histor y Allergies Allergy/AdvReac Type Severity Reaction Status Date / Time No Known Allergies Allergy Verified 02/08/25 17:23 Review of Systems Review of Systems: Pertinent positives per HPI. Patient denies any fever, chills, rash, headache, visual changes, dizziness, cough, runny nose, sore throat, shortness of breath, chest pain, palpitations, nausea, vomiting, diarrhea, constipation, abdominal pain, or any urinary issues. PMFSH Comments At the time of my signature, I reviewed and agree with the nursing past medical, surgical, social, and family history. There is no relevant family history pertinent to the patient complaint. Exam Narrative: General: Well-developed, well nourished, in no apparent distress Head: Normocephalic, atraumatic Eyes: Pupils equally round and reactive to light bilaterally, EOM intact, sclera and conjunctive clear, no discharge, lids normal Ears: TMs intact, red, bulging, ear canals clear, no drainage, grossly hearing normal. Nose: Nares patent, clear discharge, mild inflammation, no sinus tenderness. Mouth: Oropharynx without lesions or masses, good dentition, MMM. Neck: Supple, trachea midline, no enlargement of anterior or posterior cervical nodes, no thyroid masses or goiter palpable. Cardio: Regular rate and rhythm, s1 and s2 normal, no murmur appreciated. Resp: Clear to auscultation bilaterally anteriorly and posteriorly, no rhonchi, rales, wheezing or rubs Course Course Emergency Course: Portions of this record may have been created with voice recognition software. Level of Care: Express Care Visit Vital Signs Vital signs: Vital Signs Temperature 36.6 C 02/08/25 17:28 Pulse Rate 88 02/08/25 17:28 Respiratory Rate 16 02/08/25 17:28 Blood Pressure 136/82 02/08/25 17:28 Pulse Oximetry 100 02/08/25 17:28 Oxygen Delivery Room Air 02/08/25 17:28 Temperature 36.6 C 02/08/25 17:28 Pulse Rate 88 02/08/25 17:28 Respiratory Rate 16 02/08/25 17:28 Blood Pressure 136/82 02/08/25 17:28 Pulse Oximetry 100 02/08/25 17:28 Oxygen Delivery Room Air 02/08/25 17:28 Vital signs reviewed Medical Decision Making MDM Narrative Medical decision making narrative: At the time of visit patient is resting comfortably on the exam table. Patient appears to be nontoxic. Complaints of decreased hearing and ear pain. States he had URI symptoms for 1 week. Denies any fevers, chills, body aches. Feels like he has got a lot of congestion in his ears. On exam patient has bilateral TMs intact, bulging, red. Does have some residual nasal congestion. Lung sounds are clear, heart rates regular rate rhythm Plan: I suspect patient has acute bilateral otitis media-will send in prescription for prednisone to help with congestion and amoxicillin to cover for infection. Supportive measures were discussed with the patient and they voiced understanding discharge instructions and agrees to treatment plan. Return precautions reviewed Differential Diagnosis Differential Diagnosis: Otitis media, otitis externa, eustachian tube dysfunction, cerumen impaction, upper respiratory infection, serous otitis Vital Signs Vital Signs: Vital Signs Temperature 36.6 C 02/08/25 17:28 Pulse Rate 88 02/08/25 17:28 Respiratory Rate 16 02/08/25 17:28 Blood Pressure 136/82 02/08/25 17:28 Pulse Oximetry 100 02/08/25 17:28 Oxygen Delivery Room Air 02/08/25 17:28 Temperature 36.6 C 02/08/25 17:28 Pulse Rate 88 02/08/25 17:28 Respiratory Rate 16 02/08/25 17:28 Blood Pressure 136/82 02/08/25 17:28 Pulse Oximetry 100 02/08/25 17:28 Oxygen Delivery Room Air 02/08/25 17:28 Discharge Plan Discharge Clinical Impression: Bilateral acute otitis media Patient Disposition: Home Condition: Stable Instructions: Antibiotic Form, Ear Infection (ED) Additional Instructions: Take any prescribed medications only as directed-prednisone and amoxicillin Tylenol/motrin as needed for pain May use heating pad to alleviate pain If you get recurrent ear infections it may be warranted to follow up with ENT. Follow up with your PCP in 3-5 days if symptoms persist. Patient Language: [place]ian Prescriptions: New prednisone 20 mg tablet 40 mg PO DAILY 5 Days Qty: 10 0RF amoxicillin 875 mg tablet 875 mg PO Q12H 7 Days Qty: 14 0RF No Action amlodipine 10 mg tablet phentermine 37.5 mg tablet triamcinolone acetonide 0.5 % cream 1 applic topical BID 7 Days Qty: 15 0RF Follow-up/Referrals: UNKNOWN,DOCTOR [Primary Care Provider] Time of Disposition: 17:30 Quality NIHSS Nursing Documentation ED NIHSS nursing documentation: reviewed/agree
[2025-02-08 17:28] VITALS: BP 136/82; PULSE 88; RESP 16; TEMP 36.6; O2SAT 100
== END 2025-02-08 17:34 | disposition home or self-care (01) ==
PROVIDERS: Emergency Provider Nurse Practitioner Family
DX: H66.93 Otitis media, unspecified, bilateral (principal); I10 Essential (primary) hypertension
CPT/HCPCS: 99213; G0463